=== PATIENT | male | born 1940 | race Caucasian/White ===

== ENCOUNTER 2018-04-10 07:39 | Day surgery (SDC) | payer MEDICARE, OTHER, SELFPAY ==
--- NOTE | 2018-04-09 16:21 | W.PIPPEYE ---
History of Present Illness Chief Complaint: Progressive decreased vision, right eye Narrative: The patient is a 77-year-old male with history of progressive decreased vision in both eyes at both distance and near, right eye worse than left. He was noted to have uncorrected vision of 20/200 in the right eye, correctable to 20/30, but with significant nuclear and cortical cataract in the right eye. The option of cataract surgery was offered to the patient and he wished to proceed. In addition, he has a moderate amount of astigmatism and desired a toric intraocular lens and attempt to reduce his postoperative needs for spectacle correction. NOTE: The Chief Complaint, HPI, Past Medical History, Past Surgical History, Family History, Social History, Medications, and complete Ophthalmic Exam with detailed Assessment and Plan have already been documented in the patient's outpatient ophthalmic record and are not covered again in detail here. [facility] Medical History Cortical cataract of right eye (Acute) Nuclear sclerotic cataract of right eye (Acute) Social History Smoking/Tobacco Use Status: Former Tobacco Use Meds Home Medications Medication Instructions Recorded Confirmed Type Prilosec OTC 40 mg PO DAILY NS 01/22/15 04/07/18 History atorvastatin 80 mg PO DAILY tab-cap NS 01/22/15 04/07/18 History nitroglycerin [Nitrostat] 0.4 mg SUBLINGUAL ONCE tab-cap NS 01/22/15 04/07/18 History aspirin 325 mg PO DAILY #90 tablet 12/19/16 04/07/18 Rx amlodipine 10 mg PO DAILY 04/07/18 04/07/18 History apixaban [Eliquis] 5 mg PO BID 04/07/18 04/07/18 History metoprolol succinate 75 mg PO DAILY 04/07/18 04/07/18 History Allergies Allergy/AdvReac Type Severity Reaction Status Date / Time No Known Allergies Allergy Unverified 09/05/17 14:02 Exam OCULAR EXAM:: Most recent ocular examination revealed uncorrected visual acuity of 2200 OD, 20/40 OS. Best corrected vision was 20/30 OD, 20/25 OS. Intraocular pressure is 13 OD 12 OS. Pupils equal, round, and reactive without afferent pupillary defect extraocular motility is normal. Slit-lamp examination shows pupils dilating to 5 mm OU. 2+ nuclear with 1-2+ cortical cataract OD. 2+ nuclear with 1-2+ cortical cataract OS. Dilated funduscopic examination shows disc cupping of 0.3 OD, 0.2 OS with mild nelly-papillary atrophy. The optic nerves have good perfusion and normal color. The retinal vasculature is normal without significant tortuosity or abnormality. The maculas are normal in appearance with normal contour and foveal reflex appropriate for age. The peripheral retina and vitreous are normal. Assessment and Plan (1) Nuclear sclerotic cataract of right eye: Current visit: No Status: Acute Assessment: Visually significant cataract, right eye. Plan: Cataract extraction with intraocular lens implantation, right eye (2) Cortical cataract of right eye: Current visit: No Status: Acute Assessment: Visually significant cataract, right eye. Plan: Cataract extraction with intraocular lens implantation, right eye Note: NOTE:: The details of the planned surgery, including the risks, indications,limitations,expectations,outcome and possible complications were explained to the patient. The patient understands the complications including, but not limited to: infection, hemorrhage, posterior dislocation of the lens or nuclear fragments which may require the intervention of a vitreoretinal surgeon, possible loss of the eye, or from anesthetic complications. The patient has been made aware of the option of not having surgery, that vision following surgery may not be equal to that prior to surgery, and that the planned surgery may not achieve the intended results. Following this discussion, which the patient appeared to understand, the patient wishes to proceed with cataract surgery with lens implantation of the affected eye to improve and maximize vision.
[2018-04-10 07:59] VITALS: BP 137/80; PULSE 62; RESP 14; TEMP 36.6; O2SAT 90
[2018-04-10] MEDS: Tropicam./Phenyleph. (1/2.5%) 5 ML BTL OD ×3 (08:23→08:31)
[2018-04-10] MEDS: Tetracaine 0.5% 4 ML BTL OD ×4 (08:23→09:10)
[2018-04-10] MEDS: Povidone-Iodine Ophth 30 ML BTL (09:11)
[2018-04-10] MEDS: Lidocaine 2% Jelly 6 ML SYR (09:12)
[2018-04-10] MEDS: Lidocaine 1% Pres-Free 5 ML VIAL (09:18)
[2018-04-10] MEDS: Balanced Salt Soln.-PLUS 500 ML BAG (09:19)
--- NOTE | 2018-04-10 09:48 | W.PM.DSUDISC ---
Discharge Plan Discharge Details Attending Provider: Alon Monaco Primary Care Provider: None,None Home Meds and New Rx's Prescriptions: No Action atorvastatin 80 MG tablet 80 mg PO DAILY RF: 0 nitroglycerin [Nitrostat] 0.4 MG tablet, sublingual 0.4 mg Sublingual ONCE RF: 0 Prilosec OTC 20 MG tablet,delayed release (DR/EC) 40 mg PO DAILY RF: 0 aspirin 325 MG tablet 325 mg PO DAILY Qty: 90 RF: 0 amlodipine 10 mg Tablet 10 mg PO DAILY RF: 0 metoprolol succinate 25 mg Tablet Extended Release 24 Hr 75 mg PO DAILY RF: 0 Eliquis 5 mg Tablet 5 mg PO BID RF: 0 Discharge Instructions Stand Alone Forms: Post-op Topical Cataract, Ramo Dwyer (DSU) DS: Diagnosis Discharge Diagnosis (1) Status post cataract extraction and insertion of intraocular lens of right eye: Status: Acute
--- NOTE | 2018-04-10 09:50 | ROE_ITS ---
Date of service: 04/10/18 Time of Service: 09:49 Operative Note PRE-OP DIAGNOSIS: Cataract, right eye, with corneal astigmatism POST-OP DIAGNOSIS: same PROCEDURE: Cataract extraction using phacoemulsification with toric intraocular lens implant, right eye SURGEON: Alon Monaco ANESTHESIA: MAC (with local sub-tenon's anesthetic injection) PATHOLOGY: none sent COMPLICATIONS: None Patient was transported to: same day Patient's condition: stable Implants: [employer] / STONEY Tecnis ZCT Toric Intraocular Lens Indications: Progressive decreased vision due to cataract, right eye, with corneal astigmatism Procedure Description: [] CATARACT SURGERY OPERATIVE REPORT PREOPERATIVE DIAGNOSIS: Nuclear/cortical cataract, right eye POSTOPERATIVE DIAGNOSIS: Same OPERATION: Cataract extraction using phacoemulsification with posterior chamber toric intraocular lens implant, right eye. IOL: IOL Informatics Application Analyst/Model: [employer] Vision / STONEY Tecnis ZCT 225 IOL Power: + 16.0 diopters sphere, 2.25 cylinder IOL Serial Number: [id number] Optic Diameter: 6.0mm Haptic/Overall Diameter: 13.00mm PHACO INFO: Reyes Huaaturion Vision System with OZil and Active Fluidics Cumulative Dispersed Energy (CDE): 14.7 seconds SURGEON: Alon Monaco MD, SHEYLA ANESTHESIA: Monitored Anesthesia Care (MAC), with local sub-tenon's anesthetic infiltration COMPLICATIONS: None SPECIMENS: None INDICATIONS FOR PROCEDURE: The patient is a 77-year old male with history of diminished visual acuity in both eyes secondary to the development of bilateral nuclear and cortical cataracts. He has significant against the rule astigmatism in the right eye and desired correction with a toric intraocular lens [facility] PROCEDURE: The correct surgical eye was identified and marked as the right eye and the pupil was dilated in the preoperative area using mydriatics and cycloplegics. The dilated pupil size was 6.5 mm. With the patient in the seated position, topical anesthetic was applied and a surgical marker was used to guillermina the limbus at 6:00. A Surgilum Robomarker was then used to guillermina the 0/180 degree reference axis. Oral sedation was administered in the form of an Imprimis MKO Melt (midazolam 3mg/ketamine 25mg/ondansetron 2mg). The patient was brought to the operating room where cardiopulmonary monitoring was instituted and surgical time-out was performed, confirming the correct operative eye and IOL power. Topical anesthesia was administered and ophthalmic povidone-iodine 5% was instilled into the conjunctival fornices. Lidocaine gel was applied to the cornea and the nelly-ocular area was prepped with Betadine 10% solution and draped in the usual sterile fashion for intraocular surgery, including an aperture drape. A Tegaderm transparent film dressing was cut in half and used to cover the lashes and lid margins. Care was taken to sequester the lashes and lid margins under the Tegaderm dressing. A lid speculum was placed between the lids of the operative eye and the Tiffani-Pardeep operating microscope was maneuvered into position. Angel scissors were then used to make a conjunctival buttonhole approximately 6mm posterior to the limbus in the inferonasal quadrant. Blunt dissection was carried out to expose bare sclera, and a blunt-tipped sub-tenon?s anesthesia cannula was introduced and passed posteriorly along the globe where non- preserved plain lidocaine was injected into posterior sub-Tenon?s space. A corneal ring gauge and axis marker were then used to guillermina the 180 degree position for the main phaco incision.and the 0/180 degree axis for alignment of the toric IOL. A sideport knife was used to make a paracentesis port at the 7:00 postion and the anterior chamber was filled with Healon GV. A 2.4mm keratome knife was used to create a half-thickness groove at the limbus and then to construct a three-plane near-clear corneal tunnel extending 2.0mm into clear cornea at the 180 degree axis. . A flap was raised on the anterior capsule and capsulorhexis forceps were used to complete a continuous curvilinear capsulorhexis of 4.5 mm. Balanced salt solution was then used to perform cortical cleaving hydrodissection and nuclear hydrodelineation until the lens could be freely rotated within the capsular bag. The lens nucleus was then disassembled and removed within the capsular bag and iris plane using phacoemulsification. Residual cortical material was removed using the 45-degree angled silicone I/A tip with 0.3mm port. The posterior capsule was carefully polished to remove as much residual lens epithelial cells as safely possible. The capsular bag was then inflated and the anterior chamber deepened with viscoelastic. The lens implant described above was inserted into the capsular bag using the STONEY [place] Injector. A Kuglen hook was used to dial the IOL into position, about 10 degrees counterclockwise of its final alignment. Residual viscoelastic was then removed first from posterior to the IOL, then from the anterior chamber using the I/A handpiece. The I/A handpiece was then used to dial the IOL to the target axis. The lens implant was noted to center nicely within the capsular bag, with the toric IOL prather aligned at the 0/180 degree axis. The incisions were stromally hydrated, and the anterior chamber was reformed using BSS. Then 0.4cc of moxifloxacin 1.5mg/ml were injected into the capsular bag and anterior chamber. The incisions were checked with a Weck spear and found to be secure. Several drops of ophthalmic povidone-iodine 5% were then applied to the eye followed by two drops of Imprimis combination moxifloxacin/dexamethasone solution. The drapes were removed and a clear plastic protective eye shield was placed over the eye. The patient was then returned to Same Day Surgery in stable condition.
[2018-04-10 10:28] VITALS: BP 146/75; PULSE 65; RESP 16; TEMP 36; O2SAT 91
== END 2018-04-10 10:25 | disposition home or self-care (01) ==
PROVIDERS: Visit Provider Ophthalmology
PROC: (CPT 66984; principal; 2018-04-10 09:30)
DX: H25.811 Combined forms of age-related cataract, right eye (principal); I10 Essential (primary) hypertension; K21.9 Gastro-esophageal reflux disease without esophagitis
CPT/HCPCS: 66984; V2632

== ENCOUNTER 2018-04-21 09:07 | Outpatient (CLI) | payer MEDICARE, OTHER, SELFPAY ==
--- NOTE | 2018-04-21 09:35 | DI.RAD_ITS ---
SYMPTOMS/DIAGNOSIS: S/P INTRAMEDULLARY NAILING OF RIGHT FEMUR; LEFT SHOULDER PAIN; OSTEOARTHRITIS OF LEFT KNEE RIGHT HIP: Two views. Comparison examinations are 02/11/17 and 01/05/17. There is again seen an intramedullary nail and screw in the proximal right femur. The distal aspect of the femoral nail is not included on the examination. No suspicious lucencies are seen in or about the orthopedic hardware to suggest loosening or infection. The femoral neck fracture appears to have healed well. No new fractures or dislocations are seen. The right hip joint appears unremarkable. Soft tissues have a normal appearance. IMPRESSION: No acute abnormality. LEFT SHOULDER: Four views. No acute fracture or dislocation is seen. There are mild hypertrophic changes seen at the acromioclavicular joint. The glenohumeral joint appears well maintained. The soft tissues are unremarkable. There are old healed left rib fractures present. IMPRESSION: Mild osteoarthritis of the left AC joint. LEG LENGTH EXAMINATION: There is an intramedullary maria esther and screw in the right femur. In the right knee, there is mild joint space narrowing and periarticular spurring seen both medially and laterally. In the left knee, there is marked narrowing of the lateral femorotibial joint space and moderate-sized periarticular spurring both medially and laterally. There does appear to be chondrocalcinosis. The right lower extremity measures 93.9 cm, the left lower extremity measures 95.1 cm.
== END 2018-04-21 09:27 ==
PROVIDERS: Visit Provider Student in an Organized Health Care Education/Training Program
DX: M25.512 Pain in left shoulder (principal); M19.012 Primary osteoarthritis, left shoulder; M17.12 Unilateral primary osteoarthritis, left knee; S72.141D Displaced intertrochanteric fracture of right femur, subsequent encounter for closed fracture with routine healing; M21.70 Unequal limb length (acquired), unspecified site; X58.XXXD Exposure to other specified factors, subsequent encounter; M75.102 Unspecified rotator cuff tear or rupture of left shoulder, not specified as traumatic; M12.812 Other specific arthropathies, not elsewhere classified, left shoulder
CPT/HCPCS: 99214; 73030; 73502; 77073

== ENCOUNTER 2018-04-24 08:38 | Day surgery (SDC) | payer MEDICARE, OTHER, SELFPAY ==
--- NOTE | 2018-04-23 14:53 | W.PIPPEYE ---
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 He developed significant bilateral nuclear and cortical cataracts that were becoming increasingly symptomatic. He underwent cataract surgery in the right eye on 04/10/2018 with a toric intraocular lens implant. Postoperatively, he has regained uncorrected vision of 20/25 in the right eye. He now presents for cataract surgery in the left eye. NOTE: The Chief Complaint, HPI, Past Medical History, Past Surgical History, Family History, Social History, Medications, and complete Ophthalmic Exam with detailed Assessment and Plan have already been documented in the patient's outpatient ophthalmic record and are not covered again in detail here. [facility] Medical History Cortical cataract of left eye (Acute) Cortical cataract of right eye (Resolved) Nuclear sclerotic cataract of right eye (Resolved) Surgical History Status post cataract extraction and insertion of intraocular lens of right eye (Acute 04/10/18) Social History Smoking/Tobacco Use Status: Former Tobacco Use Meds Home Medications Medication Instructions Recorded Confirmed Type Prilosec OTC 40 mg PO DAILY NS 01/22/15 04/21/18 History atorvastatin 80 mg PO DAILY tab-cap NS 01/22/15 04/21/18 History nitroglycerin [Nitrostat] 0.4 mg SUBLINGUAL ONCE tab-cap NS 01/22/15 04/21/18 History aspirin 325 mg PO DAILY #90 tab 12/19/16 04/21/18 Rx amlodipine 10 mg PO DAILY 04/07/18 04/21/18 History apixaban [Eliquis] 5 mg PO BID 04/07/18 04/21/18 History metoprolol succinate 75 mg PO DAILY 04/07/18 04/21/18 History Allergies Allergy/AdvReac Type Severity Reaction Status Date / Time No Known Allergies Allergy Unverified 04/21/18 09:29 Exam OCULAR EXAM:: Most recent ocular examination reveals uncorrected visual acuity of 20/25 in the right eye, 20/30 in the left eye. Intraocular pressure is 16 OD, 12 OS. Pupils equal, round, and reactive without afferent pupillary defect. Extraocular motility is normal. Slit-lamp examination reveals a well-positioned PCIOL OD with clear posterior capsule. In the left eye there is a 2+ nuclear with 1-2+ cortical cataract present. Funduscopic examination shows disc cupping of 0.3 OD 0.2 OS with peripapillary atrophy. The macula, retinal vasculature, peripheral retina and vitreous are normal OU. BRIGHTNESS ACUITY TESTING (BAT):: Brightness acuity testing of the left eye off is 20/40. Low is 20/30. Medium is 20/30. High is 20/40. Assessment and Plan (1) Nuclear sclerotic cataract of right eye: Current visit: No Status: Acute (2) Cortical cataract of left eye: Current visit: No Status: Acute Note: NOTE:: The details of the planned surgery, including the risks, indications,limitations,expectations,outcome and possible complications were explained to the patient. The patient understands the complications including, but not limited to: infection, hemorrhage, posterior dislocation of the lens or nuclear fragments which may require the intervention of a vitreoretinal surgeon, possible loss of the eye, or from anesthetic complications. The patient has been made aware of the option of not having surgery, that vision following surgery may not be equal to that prior to surgery, and that the planned surgery may not achieve the intended results. Following this discussion, which the patient appeared to understand, the patient wishes to proceed with cataract surgery with lens implantation of the affected eye to improve and maximize vision.
--- NOTE | 2018-04-23 15:04 | POEE_ITS ---
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 He developed significant bilateral nuclear and cortical cataracts that were becoming increasingly symptomatic. He underwent cataract surgery in the right eye on 04/10/2018 with a toric intraocular lens implant. Postoperatively, he has regained uncorrected vision of 20/25 in the right eye. He now presents for cataract surgery in the left eye. NOTE: The Chief Complaint, HPI, Past Medical History, Past Surgical History, Family History, Social History, Medications, and complete Ophthalmic Exam with detailed Assessment and Plan have already been documented in the patient's outpatient ophthalmic record and are not covered again in detail here. [facility] Medical History Nuclear sclerotic cataract of left eye (Acute) Cortical cataract of left eye (Acute) Cortical cataract of right eye (Resolved) Nuclear sclerotic cataract of right eye (Resolved) Surgical History Status post cataract extraction and insertion of intraocular lens of right eye (Acute 04/10/18) Social History Smoking/Tobacco Use Status: Former Tobacco Use Meds Home Medications Medication Instructions Recorded Confirmed Type Prilosec OTC 40 mg PO DAILY NS 01/22/15 04/21/18 History atorvastatin 80 mg PO DAILY tab-cap NS 01/22/15 04/21/18 History nitroglycerin [Nitrostat] 0.4 mg SUBLINGUAL ONCE tab-cap NS 01/22/15 04/21/18 History aspirin 325 mg PO DAILY #90 tab 12/19/16 04/21/18 Rx amlodipine 10 mg PO DAILY 04/07/18 04/21/18 History apixaban [Eliquis] 5 mg PO BID 04/07/18 04/21/18 History metoprolol succinate 75 mg PO DAILY 04/07/18 04/21/18 History Allergies Allergy/AdvReac Type Severity Reaction Status Date / Time No Known Allergies Allergy Unverified 04/21/18 09:29 Exam OCULAR EXAM:: Most recent ocular examination reveals uncorrected visual acuity of 20/25 in the right eye, 20/30 in the left eye. Intraocular pressure is 16 OD, 12 OS. Pupils equal, round, and reactive without afferent pupillary defect. Extraocular motility is normal. Slit-lamp examination reveals a well- positioned PCIOL OD with clear posterior capsule. In the left eye there is a 2+ nuclear with 1-2+ cortical cataract present. Funduscopic examination shows disc cupping of 0.3 OD 0.2 OS with peripapillary atrophy. The macula, retinal vasculature, peripheral retina and vitreous are normal OU. Brightness acuity testing of the left eye off is 20/40. Low is 20/30. Medium is 20/30. High is 20/40. BRIGHTNESS ACUITY TESTING (BAT):: Brightness acuity testing of the left eye off is 20/40. Low is 20/30. Medium is 20/30. High is 20/40. Assessment and Plan (1) Nuclear sclerotic cataract of left eye: Current visit: No Status: Acute Assessment: Visually significant cataract, left eye. Plan: Cataract extraction with intraocular lens implantation, left eye (2) Cortical cataract of left eye: Current visit: No Status: Acute Assessment: Visually significant cataract, left eye. Plan: Cataract extraction with intraocular lens implantation, left eye Note: NOTE:: The details of the planned surgery, including the risks, yane cations,limitations,expectations,outcome and possible complications were explained to the patient. The patient understands the complications including, but not limited to: infection, hemorrhage, posterior dislocation of the lens or nuclear fragments which may require the intervention of a vitreoretinal surgeon, possible loss of the eye, or from anesthetic complications. The patient has been made aware of the option of not having surgery, that vision following surgery may not be equal to that prior to surgery, and that the planned surgery may not achieve the intended results. Following this discussion, which the patient appeared to understand, the patient wishes to proceed with cataract surgery with lens implantation of the affected eye to improve and maximize vision.
--- NOTE | 2018-04-23 15:08 | W.PM.DSUDISC ---
Discharge Plan Discharge Details Attending Provider: Alon Monaco Primary Care Provider: None,None Home Meds and New Rx's Prescriptions: No Action atorvastatin 80 MG tablet 80 mg PO DAILY RF: 0 nitroglycerin [Nitrostat] 0.4 MG tablet, sublingual 0.4 mg Sublingual ONCE RF: 0 Prilosec OTC 20 MG tablet,delayed release (DR/EC) 40 mg PO DAILY PRNRF: 0 aspirin 325 MG tablet 325 mg PO DAILY Qty: 90 RF: 0 amlodipine 10 mg Tablet 10 mg PO DAILY RF: 0 metoprolol succinate 25 mg Tablet Extended Release 24 Hr 75 mg PO DAILY RF: 0 Eliquis 5 mg Tablet 5 mg PO BID RF: 0 Discharge Instructions Stand Alone Forms: Post-op Topical CataractRamo (DSU) DS: Diagnosis Discharge Diagnosis (1) Status post cataract extraction and insertion of intraocular lens of left eye: Status: Chronic
--- NOTE | 2018-04-23 15:10 | ROE_ITS ---
Date of service: 04/24/18 Time of Service: 11:29 Operative Note PRE-OP DIAGNOSIS: Cataract, left eye POST-OP DIAGNOSIS: same PROCEDURE: Cataract extraction using phacoemulsification with intraocular lens implant, left eye SURGEON: Alon Monaco ANESTHESIA: MAC and local (sub-tenon's anesthetic infiltration) PATHOLOGY: none sent COMPLICATIONS: None Patient was transported to: same day Patient's condition: stable Implants: [employer] / [employer] Tecnis [id number] Indications: Progressive decreased vision due to cataract, left eye Procedure Description: CATARACT SURGERY OPERATIVE REPORT PREOPERATIVE DIAGNOSIS: Nuclear/cortical cataract, left eye POSTOPERATIVE DIAGNOSIS: Same OPERATION: Cataract extraction using phacoemulsification with posterior chamber intraocular lens implant, left eye. IOL: IOL Dehydrogenation Supervisor/Model: [employer] [place] / STONEY Tecnis [id number] IOL Power: + 19.50 diopters IOL Serial Number: [id number] Optic Diameter: 6.0mm Haptic/Overall Diameter: 13.0mm PHACO INFO: Reyes Remember The [employer] Vision System with OZil and Active Fluidics Cumulative Dispersed Energy (CDE): 9.3 seconds SURGEON: Alon Monaco MD, SHEYLA ANESTHESIA: Monitored Anesthesia Care (MAC), with local sub-tenon's anesthetic infiltration COMPLICATIONS: None SPECIMENS: None INDICATIONS FOR PROCEDURE: The patient is a 77-year old male with history of symptomatic bilateral nuclear and cortical cataracts. He has already undergone cataract surgery in the right eye with a toric intraocular lens implant. He now has uncorrected visual acuity of 20/25 in the right eye. He now presents for cataract surgery in the left eye. PROCEDURE: The correct surgical eye was identified and marked as the left eye and the pupil was dilated in the preoperative area using mydriatics and cycloplegics. The dilated pupil size was 7.0 mm. Oral sedation was administered in the form of an Imprimis MKO Melt (midazolam 3mg/ketamine 25mg/ondansetron 2mg). The patient was brought to the operating room where cardiopulmonary monitoring was instituted and surgical time-out was performed, confirming the correct operative eye and IOL power. Topical anesthesia was administered and ophthalmic povidone-iodine 5% was instilled into the conjunctival fornices. Lidocaine gel was applied to the cornea and the nelly-ocular area was prepped with Betadine 10% solution and draped in the usual sterile fashion for intraocular surgery, including an aperture drape. A Tegaderm transparent film dressing was cut in half and used to cover the lashes and lid margins. Care was taken to sequester the lashes and lid margins under the Tegaderm dressing. A lid speculum was placed between the lids of the operative eye and the Tiffani-Pardeep operating microscope was maneuvered into position. Angel scissors were then used to make a conjunctival buttonhole approximately 6mm posterior to the limbus in the inferonasal quadrant. Blunt dissection was carried out to expose bare sclera, and a blunt-tipped sub-tenon?s anesthesia cannula was introduced and passed posteriorly along the globe where non- preserved plain lidocaine was injected into posterior sub-Tenon?s space. A sideport knife was used to make a paracentesis port superior/superiortemporal, and the anterior chamber was filled with Healon GV. A 2.4mm keratome knife was used to create a half-thickness groove at the limbus and then to construct a three-plane near-clear corneal tunnel extending 2.0mm into clear cornea in the temporal position. . A flap was raised on the anterior capsule and capsulorhexis forceps were used to complete a continuous curvilinear capsulorhexis of 5.0 mm. Balanced salt solution was then used to perform cortical cleaving hydrodissection and nuclear hydrodelineation until the lens could be freely rotated within the capsular bag. The lens nucleus was then disassembled and removed within the capsular bag and iris plane using phacoemulsification. Residual cortical material was removed using the 45-degree angled silicone I/A tip with 0.3mm port. The posterior capsule was carefully polished to remove as much residual lens epithelial cells as safely possible. The capsular bag was then inflated and the anterior chamber deepened with viscoelastic. The lens implant described above was inserted into the capsular bag using the STONEY [place] Injector. A Kuglen hook was used to dial the IOL into position. Residual viscoelastic was then removed first from posterior to the IOL, then from the anterior chamber using the I/A handpiece. The lens implant was noted to center nicely within the capsular bag. The incisions were stromally hydrated, and the anterior chamber was reformed using BSS. Then 0.4cc of moxifloxacin 1.5mg/ml were injected into the capsular bag and anterior chamber. The incisions were checked with a Weck spear and found to be secure. Several drops of ophthalmic povidone-iodine 5% were then applied to the eye followed by two drops of Imprimis combination moxifloxacin/dexamethasone solution. The drapes were removed and a clear plastic protective eye shield was placed over the eye. The patient was then returned to Same Day Surgery in stable condition.
[2018-04-24 08:45] VITALS: BP 142/81; PULSE 78; RESP 16; TEMP 36.5; O2SAT 94
[2018-04-24] MEDS: Tetracaine 0.5% 4 ML BTL OS ×4 (09:01→10:57)
[2018-04-24] MEDS: Tropicam./Phenyleph. (1/2.5%) 5 ML BTL OS ×3 (09:01→09:15)
[2018-04-24] MEDS: Povidone-Iodine Ophth 30 ML BTL ×2 (10:57→11:22)
[2018-04-24] MEDS: Lidocaine 2% Jelly 6 ML SYR (10:57)
[2018-04-24] MEDS: Balanced Salt Soln.-PLUS 500 ML BAG (11:02)
[2018-04-24] MEDS: Lidocaine 1% Pres-Free 5 ML VIAL (11:02)
[2018-04-24 12:10] VITALS: BP 117/72; PULSE 68; RESP 16; TEMP 36.9; O2SAT 92
== END 2018-04-24 12:20 | disposition home or self-care (01) ==
LOC: SUR 08:38
PROVIDERS: Visit Provider Ophthalmology
PROC: (CPT 66984; principal; 2018-04-24 10:30)
DX: H25.812 Combined forms of age-related cataract, left eye (principal); Z98.41 Cataract extraction status, right eye; Z96.1 Presence of intraocular lens; I10 Essential (primary) hypertension; K21.9 Gastro-esophageal reflux disease without esophagitis
CPT/HCPCS: 66984; V2632

== ENCOUNTER 2018-05-31 07:54 | Outpatient (CLI) | payer MEDICARE, OTHER, SELFPAY ==
--- NOTE | 2018-05-31 12:47 | W.PREOPHP ---
Date of service: 05/31/18 Assessment and Plan (1) Primary osteoarthritis of left knee: Current visit: No Status: Chronic Left total knee replacement. Details of surgery were discussed with patient as well as risks and pertinent anatomy. All questions were answered. History of Present Illness Chief Complaint: Left knee pain Narrative: Yoseph is a 77-year-old very active male, who comes in today for preop for a left total knee replacement. He has been dealing with left knee pain for really many years, but is really been starting to aggravate him over the last year or 2. He has had a right hip fracture, and since the ORIF of his right hip fracture of the left knee is really been aggravating him. He states that he is not walking with a normal gait because of his left knee. He also continues to downhill ski, and is very cautious with both of his legs, but his left leg feels to be more painful and unsteady than the right side now. He has had known arthritis in the left knee for quite some time, and also has tried injections in the left knee which have helped some. Injections have not taken away all the pain, and really have not lasted for more than a few weeks at a time. He would like to continue to stay active, and Dr. Brewer does suggest a left total knee replacement, and Yoseph agrees and is anxious to proceed. Pertinent Surgical Information Yoseph states that he has tried oxycodone, and this did not work out well for him as he had hallucinations and constipation. About 5 years ago Yoseph but having some signs of angina with activity, especially skiing. Eventually, while skiing 1 day in [place], he went to the walk-in clinic because of chest pain and was told that he was having a small heart attack. He immediately was transported to [place] where he had cardiac cath and stenting. He has not had any chest pain or shortness of breath episodes with activity since then. He does continue to be very active including skiing, both downhill and cross-country He sees a communication coordinator locally, and according to Yoseph does not have any issues at this time. Yoseph also states that the communication coordinator is aware of his upcoming left total knee replacement. Patient denies history of CVA, angina, asthma, COPD, renal or liver disorders, hepatitis, bleeding disorders, diabetes, immune or thyroid disorders. No complications from anesthesia. Review of Systems Constitutional Denies fever(s) ENT Denies dizziness and Denies sore throat Cardiovascular Denies chest pain, Denies palpitations and Denies dyspnea Respiratory Denies cough and Denies dyspnea Gastrointestinal Denies abdominal pain, Denies melena, Denies hematochezia, Denies diarrhea, Denies nausea and Denies vomiting Genitourinary Denies hematuria and Denies dysuria Neurologic Denies dizziness Endocrine Denies palpitations PFSH Medical History Hyperlipidemia (Acute) History of CT (myocardial infarction) (Acute) Cortical cataract of left eye (Resolved) Cortical cataract of right eye (Resolved) Nuclear sclerotic cataract of right eye (Resolved) Nuclear sclerotic cataract of left eye (Ruled-out) Surgical History Closed fracture of right hip requiring operative repair (Acute) History of tonsillectomy and adenoidectomy (Acute) History of heart artery stent (Chronic) Status post cataract extraction and insertion of intraocular lens of right eye (Acute 04/10/18) Status post cataract extraction and insertion of intraocular lens of left eye (Chronic 04/24/18) Social History Smoking and Tabacco status: Former Tobacco Use Meds Home Medications Medication Instructions Recorded Confirmed Type Prilosec OTC 40 mg PO DAILY PRN NS 01/22/15 05/31/18 History atorvastatin 80 mg PO HS tab-cap NS 01/22/15 05/31/18 History nitroglycerin [Nitrostat] 0.4 mg SUBLINGUAL ONCE tab-cap NS 01/22/15 05/31/18 History aspirin 325 mg PO DAILY #90 tab 12/19/16 05/31/18 Rx amlodipine 10 mg PO DAILY 04/07/18 05/31/18 History metoprolol succinate 75 mg PO DAILY 04/07/18 05/31/18 History Allergies Allergy/AdvReac Type Severity Reaction Status Date / Time No Known Allergies Allergy Unverified 05/31/18 09:29 Exam [facility] Head: normocephalic and atraumatic General nose exam: no nasal discharge Throat: uvula midline and no uvular edema Other: soft palate rises symmetrically, no erythema Eyes Conjunctivae: conjunctivae normal Sclera: sclerae normal Pupils: PERRL Resp Effort & Inspection: normal respiratory effort Auscultation: clear to auscultation bilaterally and no wheezes Cardio Rate: regular rate Rhythm: regular rhythm Heart Sounds: S1 normal, S2 normal and no murmurs
--- NOTE | 2018-05-31 12:55 | HPE_ITS ---
Date of service: 05/31/18 Assessment and Plan (1) Primary osteoarthritis of left knee: Current visit: No Status: Chronic Left total knee replacement. Details of surgery were discussed with patient as well as risks and pertinent anatomy. All questions were answered. History of Present Illness Chief Complaint: Left knee pain Narrative: Yoseph is a 77-year-old very active male, who comes in today for preop for a left total knee replacement. He has been dealing with left knee pain for really many years, but is really been starting to aggravate him over the last year or 2. He has had a right hip fracture, and since the ORIF of his right hip fracture of the left knee is really been aggravating him. He states that he is not walking with a normal gait because of his left knee. He also continues to downhill ski, and is very cautious with both of his legs, but his left leg feels to be more painful and unsteady than the right side now. He has had known arthritis in the left knee for quite some time, and also has tried injections in the left knee which have helped some. Injections have not taken away all the pain, and really have not lasted for more than a few weeks at a time. He would like to continue to stay active, and Dr. Brewer does suggest a left total knee replacement, and Yoseph agrees and is anxious to proceed. Pertinent Surgical Information Yoseph states that he has tried oxycodone, and this did not work out well for him as he had hallucinations and constipation. About 5 years ago Yoseph but having some signs of angina with activity, especially skiing. Eventually, while skiing 1 day in [place], he went to the walk-in clinic because of chest pain and was told that he was having a small heart attack. He immediately was transported to [place] where he had cardiac cath and stenting. He has not had any chest pain or shortness of breath episodes with activity since then. He does continue to be very active including skiing, both downhill and cross-country He sees a tower loader operator locally, and according to Yoseph does not have any issues at this time. Yoseph also states that the tower loader operator is aware of his upcoming left total knee replacement. Patient denies history of CVA, angina, asthma, COPD, renal or liver disorders, hepatitis, bleeding disorders, diabetes, immune or thyroid disorders. No complications from anesthesia. Review of Systems Constitutional Denies fever(s) ENT Denies dizziness and Denies sore throat Cardiovascular Denies chest pain, Denies palpitations and Denies dyspnea Respiratory Denies cough and Denies dyspnea Gastrointestinal Denies abdominal pain, Denies melena, Denies hematochezia, Denies diarrhea, Denies nausea and Denies vomiting Genitourinary Denies hematuria and Denies dysuria Neurologic Denies dizziness Endocrine Denies palpitations PFSH Medical History Hyperlipidemia (Acute) History of [place] (myocardial infarction) (Acute) Cortical cataract of left eye (Resolved) Cortical cataract of right eye (Resolved) Nuclear sclerotic cataract of right eye (Resolved) Nuclear sclerotic cataract of left eye (Ruled-out) Surgical History Closed fracture of right hip requiring operative repair (Acute) History of tonsillectomy and adenoidectomy (Acute) History of heart artery stent (Chronic) Status post cataract extraction and insertion of intraocular lens of right eye (Acute 04/10/18) Status post cataract extraction and insertion of intraocular lens of left eye (Chronic 04/24/18) Social History Smoking and Tabacco status: Former Tobacco Use Meds Home Medications Medication Instructions Recorded Confirmed Type Prilosec OTC 40 mg PO DAILY PRN NS 01/22/15 05/31/18 History atorvastatin 80 mg PO HS tab-cap NS 01/22/15 05/31/18 History nitroglycerin [Nitrostat] 0.4 mg SUBLINGUAL ONCE tab-cap NS 01/22/15 05/31/18 History aspirin 325 mg PO DAILY #90 tab 12/19/16 05/31/18 Rx amlodipine 10 mg PO DAILY 04/07/18 05/31/18 History metoprolol succinate 75 mg PO DAILY 04/07/18 05/31/18 History Allergies Allergy/AdvReac Type Severity Reaction Status Date / Time No Known Allergies Allergy Unverified 05/31/18 09:29 Exam [facility] Head: normocephalic and atraumatic General nose exam: no nasal discharge Throat: uvula midline and no uvular edema Other: soft palate rises symmetrically, no erythema Eyes Conjunctivae: conjunctivae normal Sclera: sclerae normal Pupils: PERRL Resp Effort & Inspection: normal respiratory effort Auscultation: clear to auscultation bilaterally and no wheezes Cardio Rate: regular rate Rhythm: regular rhythm Heart Sounds: S1 normal, S2 normal and no murmurs
== END 2018-05-31 08:14 ==
PROVIDERS: PCP Family Medicine; Visit Provider Student in an Organized Health Care Education/Training Program
DX: M25.562 Pain in left knee (principal); M17.12 Unilateral primary osteoarthritis, left knee; Z01.818 Encounter for other preprocedural examination
CPT/HCPCS: NC

== ENCOUNTER 2018-05-31 08:56 | Outpatient (CLI) | payer MEDICARE, OTHER, SELFPAY ==
[2018-05-31 10:06] LABS: HCT 43.8 % (40.0-50.0); HGB 14.3 g/dL (13.5-17.5); Mean Corp. HGB Concentration 32.6 g/dL (32.0-36.0); Mean Corpuscular Hemoglobin 30.2 pg (27.0-33.0); Mean Corpuscular Volume 92.4 fL (80-95); Mean Platelet Volume 10.2 fL (8.0-11.0); Platelet Count 240 x1000/uL (130-400); RBC 4.74 m/cumm (4.50-6.00); RBC Distribution Width 13.6 % (11.8-14.1); White Blood Cell Count 7.41 k/cumm (4.4-10.8)
[2018-05-31 10:47] LABS: Anion Gap 6.5 mmol/L (3-11); BUN 24 mg/dL (7-18); CO2 29.5 mmol/L (21.0-32.0); CREATININE 0.91 mg/dL (0.70-1.30); Calcium 8.9 mg/dL (8.5-10.1); Chloride 106 mmol/L (98-107); Glucose 95 mg/dL (70-100); Potassium 4.4 mmol/L (3.5-5.1); Sodium 142 mmol/L (136-145)
== END 2018-05-31 09:16 ==
PROVIDERS: PCP Family Medicine; Visit Provider Student in an Organized Health Care Education/Training Program
DX: M17.12 Unilateral primary osteoarthritis, left knee (principal); Z01.812 Encounter for preprocedural laboratory examination
CPT/HCPCS: 36415; 80048; 85027

== ENCOUNTER 2018-06-06 08:01 | Inpatient (IN) | payer MEDICARE, OTHER, SELFPAY ==
[2018-05-31 08:13] VITALS: BP 142/80; PULSE 63; RESP 18; TEMP 36.7; O2SAT 92
--- NOTE | 2018-05-31 08:56 | NUR.NOTE ---
05/31/18 Site Auditor unavailable for Pre-Op visit. PGNursing Note:
[2018-06-06] VITALS (19 sets, daily range): BP systolic 105–137; BP diastolic 58–81; PULSE 53–71; RESP 8–18; TEMP 35.4–36.6; O2SAT 86–96
[2018-06-06] MEDS: Celecoxib 200 MG CAP 400 MG PO (06:45)
[2018-06-06] MEDS: Acetaminophen 500 MG TAB 1000 MG PO (06:45)
[2018-06-06] MEDS: Gabapentin 300 MG CAP PO ×2 (06:45→22:10)
[2018-06-06] MEDS: oxyCODONE-CR 10 MG TABCR PO (06:45)
[2018-06-06] MEDS: Lactated Ringers 1,000 ML 80 ML IV ×3 (07:15→20:19)
[2018-06-06] MEDS: Bupivacaine LIPOSOME/PF 133 MG/10 ML VIAL IJ ×2 (07:31→09:36)
[2018-06-06] MEDS: Bupivacaine 0.5% Pres-Free 30 ML VIAL (07:31)
[2018-06-06] MEDS: Normal Saline 20 ML VIAL (09:36)
[2018-06-06] MEDS: Ketorolac 30 MG/ML VIAL (09:36)
[2018-06-06] MEDS: Bupivacaine 0.25% Pres-Free 30 ML VIAL (09:36)
--- NOTE | 2018-06-06 15:53 | PT.INIE ---
Date of service: 06/06/18 Time of Service: 14:52 PT Notes Inpatient Physical Therapy Evaluation Date: 06/06/2018 Referring Doctor: Rodri Brewer MD PT Orders: PT CONSULT: Status post left TKA Precautions: Fall. Standard. Patient Profile/Admitting Diagnosis: Order for functional mobility training, strengthening, and balance retraining of 77-year-old male status post left TKA secondary to left primary osteoarthritis was received today. PMHX: Medical History Hyperlipidemia (Acute) History of [place] (myocardial infarction) (Acute) Cortical cataract of left eye (Resolved) Cortical cataract of right eye (Resolved) Nuclear sclerotic cataract of right eye (Resolved) Nuclear sclerotic cataract of left eye (Ruled-out) Surgical History Closed fracture of right hip requiring operative repair (Acute) History of tonsillectomy and adenoidectomy (Acute) History of heart artery stent (Chronic) Status post cataract extraction and insertion of intraocular lens of right eye (Acute 04/10/18) Status post cataract extraction and insertion of intraocular lens of left eye (Chronic 04/24/18) Social History/Home Situation: Patient lives with significant other in a two-story house with 3 steps to enter and rails on both sides. Patient states he has 8 steps to the second floor of the house but he plans on staying on the first floor, where he has everything, upon discharge from the hospital. Prior to admission he was independent with all aspects of ADLs but has increasingly been limited by pain on the left knee due to arthritis. Current Functional Limitations: CGA with bed mobility, minimal assist with transfers and ambulation using front-wheeled walker. Equipment Owned/DME: Patient states that he has a front wheeled walker, axillary crutches, cane, shower chair, and [id number] commode all of which he used when he had previous surgery on his right hip. Subjective: Patient reports he does not feel anything when this PT came in for evaluation. He states he looks forward to going home and continue with outpatient physical therapy services. He also states that his lived an active life down he will skiing and cross country skiing in and out of state. 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 Objective: General Observation: Patient was seen lying in bed with cryocuff on left knee, anti-DVT pump on R leg, IV in the right UE, Peace catheter in place, and oxygen cannula on at 1 L/min. Mental Status: Alert and oriented x3 Pain: Denies Vital Signs: 122/76 mmHg, 63 bpm, 12 CPM, 35.9 ?C, 95% at 1 L of oxygen per minute. ROM: Right Upper Extremity: WFL Left Upper Extremity: WFL Right Lower Extremity: WFL Left Lower Extremity: Active left knee flexion -15 to 88 degrees in supine; -15 to 95 degrees when measured while sitting at edge of bed. Strength: Right Upper Extremity: WFL Left Upper Extremity: WFL Right Lower Extremity: WFL Left Lower Extremity: Hip flexors 3/5. Knee flexors 3-/5. Knee extensors 3-/5. Ankle plantar flexors/dorsiflexors 4/5. Sensation: Patient states he is able, although not fully, to feel the sole of his left foot and he is able to feel his muscles malena by the time weight bearing activity was assessed. Bed Mobility/Transfers: Rolling contact-guard assist Supine to sit contact-guard assist Sit to supine contact-guard assist Sit to stand minimal assist Stand to sit minimal assist Bed to chair minimal assist Chair to bed minimal assist Gait: Patient tolerated level surface ambulation inside room for 10 feet while holding onto front wheeled walker with a step to pattern with noticeably decreased flexion on the left side during swing and decreased knee extension as well during mid stance on L, minimal assist provided, no pain reported nor LOB observed. A second walking activity was done and patient was able to take 20 steps including one turn with no dizziness nor any other issues observed/reported. Balance: Static Sitting: Good Dynamic Sitting: Good Static Standing: Fair Dynamic Standing: Fair Special Tests: Mobility Limitations Standardized Measure [facility] AM-PAC 6 clicks Basic Mobility Inpatient Short Form: Raw Score: 17 CMS Score: 50.57% deficit Informed Consent/Education: Patient instructed in purpose of PT consult and plan of care. Assessment: Patient is a 77 year old male patient referred to physical therapy services with the diagnosis of status post left knee total arthroplasty due to primary osteoarthritis. Patient presents with clinical signs and symptoms consistent with functional mobility decline, weakness, and mobility dependence resulting from postoperative status, as demonstrated by the following impairment level findings: 1. Limited left knee mobility and strength 2. Impaired balance/stability 3. Impaired activity tolerance Impairments are contributing to the following functional limitations: 1. Dependent mobility ADLs 2. Increased completion time with transfer performance 3. Increase completion time with ambulation performance 4. Increased risk for falls due to weakness and limited left knee mobility Patient is assessed as a Moderate 45860 complexity based on the following: History: Status post left total knee arthroplasty with comorbidities as noted above under past medical history Examination: Functional limitations and impairments as noted above Presentation: Evolving Decision Making: Moderate complexity 46567 Goals: Goals X1 week 1. Supine-Sit independent 2. Sit-Supine independent 3. Sit-Stand independent 4. Stand-Sit independent 5. Bed-Chair independent 6. Chair-Bed in dependent 7. Gait with front-wheeled walker on level surfaces for at least 300 feet 8. Stairs independent while holding onto both rails 8 steps 9. Independent with home exercise program 10. Balance good for static and dynamic standing Plan of Care/Treatment Plan: 1-2x/day, 7 days/week x 1 week. Plan of care has been reviewed with the OXYGEN EQUIPMENT AIDE providing the service under Physical Therapy direction. Initiate Physical Therapy intervention for strengthening, bed mobility, transfers, gait, stairs, balance training, use of assistive device. DISCHARGE RECOMMENDATIONS: To home with significant other with least restrictive device. May benefit from progression to outpatient physical therapy services to facilitate return to premorbid independent ADL performance and to potentially participate in premorbid recreational activities. TREATMENT CODE/TIME: 37965 25 minutes, 67475 12 minutes, 78881 12 minutes beginning at 1450 2 PM. Thank you for this referral. Geeta Hargrove, PT, DPT, CLT [facility]
--- NOTE | 2018-06-06 15:56 | IN_ITS ---
Date of service: 06/06/18 Time of Service: 14:52 PT Notes Inpatient Physical Therapy Evaluation Date: 06/06/2018 Referring Doctor: Rodri Brewer MD PT Orders: PT CONSULT: Status post left TKA Precautions: Fall. Standard. Patient Profile/Admitting Diagnosis: Order for functional mobility training, strengthening, and balance retraining of 77-year-old male status post left TKA secondary to left primary osteoarthritis was received today. PMHX: Medical History Hyperlipidemia (Acute) History of VT (myocardial infarction) (Acute) Cortical cataract of left eye (Resolved) Cortical cataract of right eye (Resolved) Nuclear sclerotic cataract of right eye (Resolved) Nuclear sclerotic cataract of left eye (Ruled-out) Surgical History Closed fracture of right hip requiring operative repair (Acute) History of tonsillectomy and adenoidectomy (Acute) History of heart artery stent (Chronic) Status post cataract extraction and insertion of intraocular lens of right eye (Acute 04/10/18) Status post cataract extraction and insertion of intraocular lens of left eye (Chronic 04/24/18) Social History/Home Situation: Patient lives with significant other in a two- story house with 3 steps to enter and rails on both sides. Patient states he has 8 steps to the second floor of the house but he plans on staying on the first floor, where he has everything, upon discharge from the hospital. Prior to admission he was independent with all aspects of ADLs but has increasingly been limited by pain on the left knee due to arthritis. Current Functional Limitations: CGA with bed mobility, minimal assist with transfers and ambulation using front-wheeled walker. Equipment Owned/DME: Patient states that he has a front wheeled walker, axillary crutches, cane, shower chair, and [id number] commode all of which he used when he had previous surgery on his right hip. Subjective: Patient reports he does not feel anything when this PT came in for evaluation. He states he looks forward to going home and continue with outpatient physical therapy services. He also states that his lived an active life down he will skiing and cross country skiing in and out of state. 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 Objective: General Observation: Patient was seen lying in bed with cryocuff on left knee, anti-DVT pump on R leg, IV in the right UE, Peace catheter in place, and oxygen cannula on at 1 L/min. Mental Status: Alert and oriented x3 Pain: Denies Vital Signs: 122/76 mmHg, 63 bpm, 12 CPM, 35.9 ?C, 95% at 1 L of oxygen per minute. ROM: Right Upper Extremity: WFL Left Upper Extremity: WFL Right Lower Extremity: WFL Left Lower Extremity: Active left knee flexion -15 to 88 degrees in supine; -15 to 95 degrees when measured while sitting at edge of bed. Strength: Right Upper Extremity: WFL Left Upper Extremity: WFL Right Lower Extremity: WFL Left Lower Extremity: Hip flexors 3/5. Knee flexors 3-/5. Knee extensors 3-/5. Ankle plantar flexors/dorsiflexors 4/5. Sensation: Patient states he is able, although not fully, to feel the sole of his left foot and he is able to feel his muscles malena by the time weight bearing activity was assessed. Bed Mobility/Transfers: Rolling contact-guard assist Supine to sit contact-guard assist Sit to supine contact-guard assist Sit to stand minimal assist Stand to sit minimal assist Bed to chair minimal assist Chair to bed minimal assist Gait: Patient tolerated level surface ambulation inside room for 10 feet while holding onto front wheeled walker with a step to pattern with noticeably decreased flexion on the left side during swing and decreased knee extension as well during mid stance on L, minimal assist provided, no pain reported nor LOB observed. A second walking activity was done and patient was able to take 20 steps including one turn with no dizziness nor any other issues observed/reported. Balance: Static Sitting: Good Dynamic Sitting: Good Static Standing: Fair Dynamic Standing: Fair Special Tests: Mobility Limitations Standardized Measure [facility] AM-PAC 6 clicks Basic Mobility Inpatient Short Form: Raw Score: 17 CMS Score: 50.57% deficit Informed Consent/Education: Patient instructed in purpose of PT consult and plan of care. Assessment: Patient is a 77 year old male patient referred to physical therapy services with the diagnosis of status post left knee total arthroplasty due to primary osteoarthritis. Patient presents with clinical signs and symptoms consistent with functional mobility decline, weakness, and mobility dependence resulting from postoperative status, as demonstrated by the following impairment level findings: 1. Limited left knee mobility and strength 2. Impaired balance/stability 3. Impaired activity tolerance Impairments are contributing to the following functional limitations: 1. Dependent mobility ADLs 2. Increased completion time with transfer performance 3. Increase completion time with ambulation performance 4. Increased risk for falls due to weakness and limited left knee mobility Patient is assessed as a Moderate 79241 complexity based on the following: History: Status post left total knee arthroplasty with comorbidities as noted above under past medical history Examination: Functional limitations and impairments as noted above Presentation: Evolving Decision Making: Moderate complexity 81237 Goals: Goals X1 week 1. Supine-Sit independent 2. Sit-Supine independent 3. Sit-Stand independent 4. Stand-Sit independent 5. Bed-Chair independent 6. Chair-Bed in dependent 7. Gait with front-wheeled walker on level surfaces for at least 300 feet 8. Stairs independent while holding onto both rails 8 steps 9. Independent with home exercise program 10. Balance good for static and dynamic standing Plan of Care/Treatment Plan: 1-2x/day, 7 days/week x 1 week. Plan of care has been reviewed with the SURVEY PROJECT MANAGER providing the service under Physical Therapy direction. Initiate Physical Therapy intervention for strengthening, bed mobility, transfers, gait, stairs, balance training, use of assistive device. DISCHARGE RECOMMENDATIONS: To home with significant other with least restrictive device. May benefit from progression to outpatient physical therapy services to facilitate return to premorbid independent ADL performance and to potentially participate in premorbid recreational activities. TREATMENT CODE/TIME: 85088 25 minutes, 63778 12 minutes, 23157 12 minutes beginning at 1450 2 PM. Thank you for this referral. Geeta Hargrove, PT, DPT, CLT [facility]
[2018-06-06] MEDS: Atorvastatin 40 MG TAB 80 MG PO (20:19)
[2018-06-06] MEDS: Celecoxib 100 MG CAP PO (22:09)
[2018-06-07] VITALS (8 sets, daily range): BP systolic 114–144; BP diastolic 53–74; PULSE 70–83; RESP 18–20; TEMP 37–37.9; O2SAT 84–96
[2018-06-07] MEDS: oxyCODONE 5 MG TAB PO ×6 (00:47→21:57)
--- NOTE | 2018-06-07 07:52 | ROE_ITS ---
Date of service: 06/06/18 Time of Service: 10:48 Operative Note DATE OF PROCEDURE: 06/06/18 PRE-OP DIAGNOSIS: Left knee osteoarthritis POST-OP DIAGNOSIS: same PROCEDURE: Left Total Knee Replacement SURGEON: Rodri Brewer COMPUTER OPERATIONS ANALYST: Guillermina Moore ANESTHESIA: regional and spinal ESTIMATED BLOOD LOSS: 300 PATHOLOGY: none sent TOURNIQUET TIME: 32 COMPLICATIONS: None Patient was transported to: PACU Patient's condition: stable Implants: 1. Depuy Attune Posterior Stabilized Femoral Component, Size 7 2. Depuy Attune Fixed Platform Tibial Component, Size 6 3. Depuy Attune 7 x 8 mm fixed, Stabilized Poly 4. Depuy Attune Patellar Component, Size 38 mm Indications: I have seen Yoseph in clinic for symptoms of left knee arthritis, confirmed with radiographic findings. Yoseph has exhausted nonoperative methods and was having significant limitations in daily function and desired better function and less pain. I discussed the technical details of a knee replacement. I explained the risks of the procedure to include, but not limited to, bleeding, infection, pain, stiffness, fracture, damage to nerves and vessels, damage to muscles and tendons, loosening, need for repeat procedure, blood clot and cardiopulmonary demise. Despite these risks, Yoseph elected to proceed. Findings: There was significant signs of arthritis throughout the knee. Procedure Description: Yoseph was greeted in the preoperative holding area where the correct side was identified and marked. The consent was reviewed with the patient and signed. The history and physical was updated. All questions were answered. Preoperative mediacations were administered: Acetaminophen 1000mg, Celebrex 400mg, Gabapentin 300mg, and Oxycontin 10mg. An adductor canal block was then administered by the anesthesia team in the PACU. He was taken back to the operating room. A spinal anesthetic was attempted but was unsuccessful and therefore converted to a general anesthetic. The patient was placed into the supine position on the operating room table. A nonsterile tourniquet was placed high onto the leg but only used for cementing. Posts were placed for positioning during the procedure. All bony prominences were well padded. Prophylactic antibiotics in the form of cefazolin were administered. 1g of Tranxemic Acid was given intravenously within 30 minutes of incision. The left leg was then prepped with Chloraprep and draped in a s tandard fashion with impervious stockinette and extremity drape with Iodine impregnated skin protection. A timeout to confirm correct identity, side and site, procedure, allergies, anesthesia, and medical concerns was performed. With the knee in some flexion, a midline incision was made overlying the knee. Full thickness skin flaps were raised once the extensor mechanism was encountered. These were raised medially and laterally. Any bleeding was controlled with electrocautery. Once the extensor mechanism was fully exposed, a medial parapatellar arthrotomy was performed in a flexed position. All bleeding from the arthrotomy and the geniculate arteries was coagulated. A medial subperiosteal peel was performed with electrocautery to the midcoronal plane. The fat pad was removed while keeping the patellar tendon protected. The anterior distal femur synovium was removed for later visualization. The ACL and PCL were resected and the anterior horn of the lateral meniscus was transected. The knee was then flexed with the patella everted. Large osteophytes from the tibia were removed. Large osteophytes from the femur were removed. Using a step drill, and based on preoperative templating, the femoral canal was entered. This was done with a step drill without any difficulty. The intramedullary distal femoral cut guide was inserted, set to a 5 degree valgus cut and 10mm cut thickness. There was some hypoplasia of the lateral femoral condyle and any remnant cartilage of the medial femoral condyle was removed for appropriate thickness. The distal femoral cut guide was then held in position and pinned. With the soft tissues protected, the distal cut was performed. This was passed over a few times to ensure a planar cut. I then turned attention to the tibia. The extramedullary guide was placed onto the leg. The distal aspect was slid medial to adjust for position of center of ankle and stay in line with shaft of the tibia. Approximately 3-5 degrees of posterior slope was kept in the proximal cutting guide. The center of the guide was aligned with the PCL. The stylus was used to assess cut thickness. The medial side, most involved side, was set for a 4mm cut. This was then held in position and pinned into place with 2 additional pins and a cross pin for stability. The medial and lateral collateral ligaments were protected and the cut was performed. With this completed, it was assessed and noted to be of appropriate dimensions. The guide was removed. A spacer block was inserted and the knee was brought into extension. Unfortunately, the gap was still quite narrow and therefore I resected an additional 2 mm off the tibia. Afterwards, the 7 mm spacer block provided full extension, without hyperextension and with stability of both the medial and lateral collateral ligaments was assessed. The pins from the femur and the tibia were then removed. The distal femur was then sized. The anterior stylus was placed onto the lateral ridge of the anterior femur. This indicated a size 7 femur. The external rotation of the guide was adjusted to 5 degrees to match the epicondylar axis, perpendicular to Chago?s line. The 4-in-1 cutting guide was the placed. The posterior medial femur cut was evaluated and appeared of good thickness. The spacer block was inserted underneath the cutting guide and stability was confirmed in 90 degrees of flexion. An franca wing was used to confirm appropriate position of the anterior cut to avoid notching. This cutting guide was ensured to be flush on the cut surface and then pinned into p lace with headed pins. While protecting the soft tissues, quad tendon, and collateral ligaments, the anterior and posterior cuts were performed with a saw. The central two pins were removed and the posterior and anterior chamfers were cut next. The notch-cutting guide was placed. This was pinned to lateralize the femoral component as much as possible while keeping it flush on the cut surface. This was then pinned into position. A reciprocating saw was used to make the notch cut. A rasp smoothed the cut surfaces. A trial posterior stabilized femoral component was then inserted, impacted down to the cut surfaces, and the lug holes were drilled. A provisional trial tibial component was placed and the knee was brought through range of motion. There was noted to be excellent extension and flexion. There was no significant instability. The patella was tracking without thumbs. The tibial cut surface was fully exposed. The medial and lateral menisci were removed. The tibia was then sized as a 6. The tibia had been previously marked during trialing to correspond to the center of the tibial component to help with rotation. The trial was aligned to this guillermina, approximately rotated to the medial 1/3rd of the tibial tubercle. The trial was pinned into place. The tibia was prepared with a reamer and a keel punch. The knee was then brought into extension and the patella was measured as 30 mm. Using the patellar clamp and cut guide, this was resected to a flat surface with at least 13mm of thickness remaining. The size 38 patella fit the best. This was oriented and then clamped into position. The lugs were drilled. The trial components were removed. The final components, except for the polyethylene were opened on the back table. The periosteal and capsular tissues, especially posteriorly, around the knee were then systematically injected with a periarticular cocktail consisting of 50cc 0.25% Marcaine, 30mg Ketorolac, 20cc of Exparal and 50cc of injectable saline. The tourniquet was then inflated to 275mmHg. The knee was thoroughly irrigated with a pulse lavage and dried. On the back table, with the implants opened, the cement was mixed. 2 batches of antibiotic laden cement were prepared with vacuum assistance. After the cement was ready a small amount was placed on to the back side of the tibial component at the keel. A small amount was placed onto the posterior flange of the femur. Cement was manual pressurized and impregnated into the cut surface of the tibia. The tibial component was then inserted into the cut surface and impacted into position. Excess cement was removed and the component was reimpacted. Again, excess cement was removed and our attention was then turned to the femur. The femoral cut surface was once again dried and cement was manually impacted into the cut surface. The femoral component was lined with the lug holes and impacted. Excess cement was removed. It was ensured to be down against the cut surface. The trial polyethylene was then inserted and the leg was brought out into full extension for the duration of the cement curing process, approximately 15min. Cement was lastly manually impacted into the cut surface of the patella and the patellar button was clamped into position and held. During this process attention was turned to the gutters of the knee and for all interfaces for any excess cement. After the cement had finally cured, approximately 15min, the clamp was removed from the patella and the knee was taken through range of motion. A size 8 mm polyethylene component provided the best range of motion and stability with less than 2mm gapping with medial and lateral stress and full extension without significant hyperextension. The patella was tracking with a no-thumbs technique. The trial poly was removed and once again the knee was checked for any loose, excess, or errant cement. The poly component was then inserted and impacted into position after cleaning and drying the tibial tray. The capsule was then reapproximated with a No. 1 Vicryl at multiple locations. The capsule was finally closed with a No. 2 Stratafix, barbed suture. The tourniquet was then released and the arthrotomy appeared watertight without significant bleeding. The second dosing of 1g TXA was started. Deep tissues were then reapproximated with 0 Vicryl and 2-0 Vicryl. The skin was closed with a running 3-0 Monocryl in a subcuticular fashion. This was reinforced with skin glue. A Mepilex silver dressing was applied along with a [id number] KENNETH wrap. A CryoCuff was applied. Yoseph was transferred to the hospital bed without difficulty an suffering no apparent complication. Yoseph has a good prognosis. Physical therapy will start today and without restrictions, weight-bearing as tolerated. Aspirin 325 mg daily, his home dose, will be used for DVT prophylaxis.
[2018-06-07] MEDS: Celecoxib 100 MG CAP PO ×2 (08:10→19:56)
[2018-06-07] MEDS: Aspirin 325 MG TAB PO (08:10)
[2018-06-07] MEDS: amLODIPine 10 MG TAB PO (08:11)
[2018-06-07] MEDS: Metoprolol CR 25 MG TABCR 75 MG PO (08:11)
--- NOTE | 2018-06-07 10:33 | PT.INTREAT ---
Date of service: 06/07/18 Time of Service: 10:33 PT Notes 06/07/18 SUBJECTIVE: Yoseph stating he has a little more discomfort today verse yesterday. He notes that he monitors his oxygen at home and it runs between 89-92% at baseline. He is generally very active person and is anxious to get up and start moving around. OBJECTIVE: Supine in bed. Agreeable to PT treatment. Nursing reports to walk without oxgyen. TRANSFERS Supine to sit: I Sit to stand: CGA Stand to sit: CGA GAIT Device: FWW Weight bearing: WBAT L Assist: CGA Distance: 75'x2 Deviation: Step to gait pattern progressing to step through VITALS: 92% on 2 L NC at rest. Removed supplemental O2 for gait per nursing. Post gait pt is 84% recovering quickly to 90%. Post PT pt resting at 87%. He was placed back on 2 L NC. STAIRS: 3-4 steps, 2-6 steps, bilateral rails, step to pattern, SBA THEREX: Light LE strengthening, Active SLR with significant extension lag noted. See flow sheet. ASSESSMENT: Progressing well with functional mobility and transfers. Pt able to stand independently to toilet and wash up at the sink. His oxygen saturation does drop with activity. No complaints of SOB throughout. PLAN: Continue per established POC. Direct time: 9:40-10:10([id number]) Yolis Murphy PTA
--- NOTE | 2018-06-07 10:39 | PTTR_ITS ---
Date of service: 06/07/18 Time of Service: 10:33 PT Notes 06/07/18 SUBJECTIVE: Yoseph stating he has a little more discomfort today verse yesterday. He notes that he monitors his oxygen at home and it runs between 89-92% at baseline. He is generally very active person and is anxious to get up and start moving around. OBJECTIVE: Supine in bed. Agreeable to PT treatment. Nursing reports to walk without oxgyen. TRANSFERS Supine to sit: I Sit to stand: CGA Stand to sit: CGA GAIT Device: FWW Weight bearing: WBAT L Assist: CGA Distance: 75'x2 Deviation: Step to gait pattern progressing to step through VITALS: 92% on 2 L NC at rest. Removed supplemental O2 for gait per nursing. Post gait pt is 84% recovering quickly to 90%. Post PT pt resting at 87%. He was placed back on 2 L NC. STAIRS: 3-4 steps, 2-6 steps, bilateral rails, step to pattern, SBA THEREX: Light LE strengthening, Active SLR with significant extension lag noted. See flow sheet. ASSESSMENT: Progressing well with functional mobility and transfers. Pt able to stand independently to toilet and wash up at the sink. His oxygen saturation do es drop with activity. No complaints of SOB throughout. PLAN: Continue per established POC. Direct time: 9:40-10:10([id number]) Yolis Murphy PTA
--- NOTE | 2018-06-07 12:45 | W.PM.PROGNOT ---
Date of Service Date of service: 06/07/18 Time of Service: 12:45 Assessment and Plan (1) Primary osteoarthritis of left knee: Current visit: No Status: Chronic General appears to be doing well. He was able to ambulate as well as go up and down some stairs. He is requiring some oxygen support his saturations at this point although it is very minimal. His pain is controlled with oral pain medications. I would like to continue to watch him today to make sure his pain seems controlled and make sure his oxygen requirement decreases. He likely has some underlying lung disease which is poorly diagnosed at this time. He should start the incentive spirometry. We will continue to monitor his oxygen status with hopeful discharge home tomorrow. Continue aspirin for DVT prophylaxis. Continue PT. Subjective Interval history since last seen: Yoseph reports be doing well in general. His pain is been well controlled. He did have some pain this morning which responded well to pain medication. Unfortunately, he has had some hypoxia. Responds easily to oxygen and seems to happen mostly when he is ambulating. He had a level dropped on 85%. He is without chest pain, shortness of breath, palpitations. He denies numbness or tingling within the leg. Exam Narrative Exam Narrative: Evaluation of the left leg shows dressing which is clean dry and intact. He is able to straight leg raise. He is able to dorsiflex and plantar flex the foot as well as extend and flex the great toe. He endorses full sensation over the superficial and deep peroneal nerve and tibial nerve. Objective Objective Clinical Data: Vital Signs Temperature 37.1 C 06/07/18 11:10 Temperature Source Tympanic 06/07/18 11:10 Pulse 72 06/07/18 11:10 Pulse Rhythm Regular 06/07/18 11:51 Respiratory Rate 20 06/07/18 11:10 Respiratory Effort Non-Labored 06/07/18 11:51 Respiratory Depth Shallow 06/07/18 11:51 Respiratory Pattern Normal 06/07/18 11:51 Blood Pressure 136/65 06/07/18 11:10 Pulse Oximetry 96 06/07/18 11:10 Respiratory End-tidal CO2 36 06/06/18 12:15 Oxygen Delivery Method Nasal Cannula 06/07/18 11:10 Oxygen Flow Rate 2 06/07/18 11:10 Pain Level 7 06/07/18 11:08 Comment 06/07/18 07:42 Intake & Output 06/06/18 06/07/18 06/07/18 23:59 11:59 23:59 Intake Total 1665.333 / 2935.333 850 / 1950 1100 / 1950 Output Total 725 / 1075 1949 Balance 940.333 / 1860.333 -1100 / 0 1100 / 0 Intake: IV 945.333 / 2215.333 200 / 1300 1100 / 1300 Oral 720 / 720 650 / 650 Output: Urine 725 / 775 1949 Other: Urine Color Light Nerissa Light Nerissa Urine Appearance Clear Clear Comment patient encouraged to take more po intake with student nurse assisting, patient was paced in a supine position , nmade comfortable, using clean technique, balloon was deflated, and catheter removed Emesis Description None
--- NOTE | 2018-06-07 13:36 | PHARADMIT ---
Admission Pharmacy Clinical Review L knee DJD Code Status Full Code Current Weight 89.1 kg Renally Cleared and Narrow Therapeutic Index Meds Crcl ~69.00 mL/min current meds okay QTc Value / Action Taken QTc 408 BP Control, Fever BP 136/65 afebrile Electrolytes reviewed n/a DVT Prophylaxis none Opiate Usage / Scheduled Bowel Regimen Ordered prn/prn Plt/SCr for Heparin / Enoxaparin n/a INR for Warfarin n/a H/H stable, WBC/Bands n/a Antibiotic appropriateness n/a Cultures and Sensitivities n/a Surgical ABX d/c within 24 hr yes DM control / Insulin Dosing n/a Heart Failure (Check EF%) (KENNETH's, B-Block, Diuretics) amlodipine, metoprolol, IV to PO Switch n/a Home Meds Reviewed yes Home Meds Not Ordered all ordered Comments possible discharge tomorrow
--- NOTE | 2018-06-07 15:21 | PT.INTREAT ---
Date of service: 06/07/18 Time of Service: 15:21 PT Notes 06/07/18 SUBJECTIVE: Yoseph stating he is doing well. He did get some pain medication after our morning session of PT due to increase in discomfort. OBJECTIVE: Seated EOB. Agreeable to PT treatment. TRANSFERS Supine to sit: I Sit to supine: I Sit to stand: SBA Stand to sit: SBA GAIT Device: FWW Weight bearing: WBAT L Assist: SBA Distance: 75'x2 Deviation: Cues for step through gait pattern Therex: LE strengthening performed as noted on flow sheet. Pt able to perform active SLR although with 20 degrees extension lag. See flow sheet for specifics. Stairs: 3- 4'' step, 2- 6 step, 2 rails, Step to pattern, SBA Vitals: 92% on 2 L NC at rest. Drops to 84% on RA with gait recovering to 90% with pursed lip breathing . Returned on 2 L NC post session. ASSESSMENT: Progressing well today PT with step through gait pattern. Pt has good technique and management with stairs. His oxygen saturation continues to drop with activity as noted above. PLAN: Continue current POC progressing toward's established goals. Session # 2: 25 minutes([id number], [id number]) Yolis Murphy PTA
[2018-06-07] MEDS: HYDROmorphone 2 MG/ML VIAL 0.5 MG IVP (16:12)
[2018-06-07] MEDS: Normal Saline Flush 10 ML SYR IV (16:14)
--- NOTE | 2018-06-07 17:20 | INITIAL_ITS ---
Care Management Initial Assess REASON FOR HOSPITALIZATION:: L Knee DJD PAST MEDICAL HISTORY/PAST SURGICAL HISTORY:: Coronary artery disease with an DE 06/2014 (S/P 3-stent to LAD, H/O gallstone with gallbladder attacks, H/O melanoma x2 and basal cell carcinoma x1, (R) shoulder manipulation, H/O colon polyps, Achilles tendon tear, Rib fractures, H/O nicotine dependence, Presumed GERD. PREVIOUS FUNCTIONAL STATUS/SOCIAL/FAMILY SUPPORTS:: Pt resides with his SO Manisha in [place]. 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 Pt has three children whom are supportive. Pt is able to manage his ADL's. CURRENT FUNCTIONAL STATUS:: Currently Pt is lying in bed this morning. Pt to go to the OR this afternoon with Dr. Brewer ADVANCE DIRECTIVES:: None on file Has patient been provided with information about the portal?: Yes Did the patient sign up for the portal?: No CODE STATUS:: Full Code INSURANCE COVERAGE / FINANCIAL ISSUES:: Medicare, [employer] [place] Insurance CURRENT HOME/COMMUNITY SERVICES/EQUIPMENT:: KATHRYN Estrada PRIMARY CARE PHYSICIAN:: Berhane Zhao POTENTIAL DISCHARGE NEEDS:: F/U appointment with Dr. Brewer, new orders for VNA/PT anticipated. PATIENT/FAMILY EDUCATION NEEDS:: Review discharge instructions, discuss Ask Me Three. ANTICIPATED BARRIERS TO DISCHARGE:: None identified. TRANSPORTATION:: Via private vehicle with his significant other, Manisha. PLAN:: F/U appointment with Dr. Brewer, new orders for VNA/PT anticipated. Via private vehicle with his significant other, Manisha.
[2018-06-07] MEDS: Atorvastatin 40 MG TAB 80 MG PO (19:56)
[2018-06-07] MEDS: Gabapentin 300 MG CAP PO (21:57)
[2018-06-08 03:43] VITALS: BP 140/75; PULSE 75; RESP 18; TEMP 37; O2SAT 94
[2018-06-08 07:45] VITALS: BP 158/81; PULSE 77; RESP 18; TEMP 36.8; O2SAT 92
[2018-06-08] MEDS: Aspirin 325 MG TAB PO (08:15)
[2018-06-08] MEDS: Metoprolol CR 25 MG TABCR 75 MG PO (08:15)
[2018-06-08] MEDS: amLODIPine 10 MG TAB PO (08:15)
[2018-06-08] MEDS: Celecoxib 100 MG CAP PO (08:15)
--- NOTE | 2018-06-08 08:19 | DSE_ITS ---
Date of service: 06/08/18 Time of Service: 09:18 DS: Diagnosis Discharge Diagnosis (1) Primary osteoarthritis of left knee: Status: Chronic Discharge Plan Disposition Patient Disposition: HOME W/HOME HEALTH SERVICE Condition: Good Discharge Details Reason For Visit: L KNEE DJD Admit Date/Time: 06/06/18 08:01 Admit Provider: Rodri Brewer Attending Provider: Rodri Brewer Primary Care Provider: Berhane Zhao Hospital Course Hospital Course: Patient was admitted to the medical/surgical floor following the procedure. It was tolerated well without any notable medical, surgical, or anesthetic complications. Mobilization began postoperatively. The burns catheter was removed and voiding spontaneously. Oxygen saturation was in the lower 90s with occassional drops to mid-80s with ambulation although without symptoms. This was followed with intermittent Oxygen. IS was initiated and continued. Other vitals were stable. Physical therapy worked with the patient and was cleared for discharge home. He is to see his PCP in follow-up for the poor oxygenation which is likely related to underlying lung disease. Home Meds and New Rx's Prescriptions: New acetaminophen 500 mg tablet 1,000 mg PO Q8H PRN (Reason: pain) Qty: 90 RF: 3 oxycodone 5 mg tablet 5 mg PO Q4H Qty: 18 RF: 0 celecoxib 100 mg capsule 100 mg PO BID Qty: 60 RF: 0 Continued atorvastatin 80 MG tablet 80 mg PO HS RF: 0 nitroglycerin [Nitrostat] 0.4 MG tablet, sublingual 0.4 mg Sublingual ONCE RF: 0 Prilosec OTC 20 MG tablet,delayed release (DR/EC) 40 mg PO DAILY PRNRF: 0 aspirin 325 MG tablet 325 mg PO DAILY Qty: 90 RF: 0 amlodipine 10 mg Tablet 10 mg PO DAILY RF: 0 metoprolol succinate 25 mg Tablet Extended Release 24 Hr 75 mg PO DAILY RF: 0 Discharge Instructions Instructions: Knee Replacement (DC) Additional Instructions: Dr. Brewer?s Total Knee Discharge Instructions Activity: The most important activity is to walk. You should try to take short walks a few times a day. It is important that when resting you work on keeping the knee straight. Avoid putting a pillow behind the knee as this will encourage flexion. Work on range of motion exercises as provided by Physical Therapy. - You should wear the ZEHRA hose on both legs for 4 weeks. Dressing: Keep the surgical dressing in place for at least another 3 days. After this it may be removed and replace with light gauze and tape or a Mepilex dressing. It may get wet after 3 days but avoid soaking the dressing. If it gets wet, just lightly pat dry. Medications: - You should take Tylenol and anti-inflammatory (Celebrex) as your primary pain control medications - You have been prescribed a stronger pain medication (Oxycodone) for breakthrough pain, take as needed as prescribed. - You will be taking Aspirin 325mg once a day for DVT prevention unless instructed otherwise. - If you have constipation you should take Colace or Miralax (both [id number]). It takes most people 3-4 days to have a bowel movement. Follow-up: 2 weeks 1. Encounter Date and Reason I certify that JOSE SYED was seen by Rodri Brewer MD on 06/08/18 and that I had a [id number] encounter with this patient that meets the physician face to face encounter requirements. 2. Clinical Findings Supporting Skilled Need and Homebound Status I certify that home health services are medically necessary, include either intermittent intermediate and/or physical/speech therapy, and that this patient is homebound in that absences from the home require considerable and taxing effort and are infrequent or of short duration, or are attributable to the need to receive medical care. [X] (a) Attached documentation from encounter provides clinical findings supporting skilled need and homebound status (including what assistance patient requires to leave the home). The encounter with the patient was in whole, or in part, for the following medical condition, which is the primary reason for home health care: L KNEE DJD s/p TKA Group Home: Yoseph would benefit from intermediate during the initial discharge and post-operative period. He has had lower than expected oxygenation values but stable on room air. His oxygenation and vitals should be assessed especially in the setting of multiple medications including narcotic pain medication to treat post-operative pain. Physical Therapy: Yoseph would benefit from physical therapy to address his weakness, stiffness, and gait abnormalities. He is s/p TKA and will benefit from PT to focus on knee extension, flexion and quad strengthening in addition to gait training using assistive devices until gait improves. Speech Therapy: Homebound: Yoseph is unable to leave his home unassisted due to significant weakness and gait abnormalities. 3. Certification and Authentication I certify that I composed the above information based on my clinical judgement relating to this patient's medical condition and, if applicable, clinical findings communicated to me by the NPP or inpatient physician who performed the Home Health Referral. All further orders will be obtained through Dr. Brewer Stand Alone Forms: Nursing Discharge Form Referrals: Rodri Brewer MD [ [facility] STAFF PHYSICIAN] - 06/21/18 3:00 pm () Activity:: Activity as Tolerated Equipment/Supplies:: Walker Diet:: As Tolerated Discharge Orders Discharge Orders: Discharge Order (Routine); Ordered 06/08/18 Ordered By: Rodri Brewer DS: Data Vitals/I&O Vitals and I&O: Vital Signs Temperature 37 C 06/08/18 03:43 Temperature Source Tympanic 06/08/18 03:43 Pulse 75 06/08/18 03:43 Pulse Rhythm Regular 06/07/18 21:12 Respiratory Rate 18 06/08/18 03:43 Respiratory Effort Non-Labored 06/07/18 21:12 Respiratory Depth Normal 06/07/18 21:12 Respiratory Pattern Normal 06/07/18 21:12 Blood Pressure 140/75 06/08/18 03:43 Pulse Oximetry 94 L 06/08/18 03:43 Respiratory End-tidal CO2 36 06/06/18 12:15 Oxygen Delivery Method Nasal Cannula 06/08/18 03:43 Oxygen Flow Rate 2 06/08/18 03:43 Pain Level 3 06/07/18 22:57 Comment 06/07/18 07:42 Intake & Output 06/07/18 06/07/18 06/08/18 11:59 23:59 11:59 Intake Total 850 / 2490 1640 / 2490 Output Total 1949 / 1950 550 / 550 Balance -1100 / 540 1640 / 540 -550 / -550 Intake: IV 200 / 1300 1100 / 1300 Oral 650 / 1190 540 / 1190 Output: Urine 1949 / 1949 550 / 550 Other: Urine Color Light Nerissa Yellow Straw Urine Appearance Clear Clear Clear Urine Odor Normal Comment with student nurse assisting, patient was paced in a supine position , nmade comfortable, using clean technique, balloon was deflated, and catheter removed patient up to toilet independently Voiding Methods Toilet Urinal [facility] Medical History Hyperlipidemia (Acute) History of [place] (myocardial infarction) (Acute) Cortical cataract of left eye (Resolved) Cortical cataract of right eye (Resolved) Nuclear sclerotic cataract of right eye (Resolved) Nuclear sclerotic cataract of left eye (Ruled-out) Surgical History Closed fracture of right hip requiring operative repair (Acute) History of tonsillectomy and adenoidectomy (Acute) Status post cataract extraction and insertion of intraocular lens of right eye (Acute 04/10/18) History of heart artery stent (Chronic) Status post cataract extraction and insertion of intraocular lens of left eye (Chronic 04/24/18) Social History Smoking/Tobacco Use Status: Former Tobacco Use Drug use: Never Do you feel safe in your relationship?: Yes
[2018-06-08 09:01] VITALS: O2SAT 95
[2018-06-08] MEDS: Normal Saline Flush 10 ML SYR IV (09:54)
[2018-06-08] MEDS: oxyCODONE 5 MG TAB PO (09:54)
--- NOTE | 2018-06-08 11:17 | PDOC.CMDIS ---
LACE Index Scoring Tool - Questions: Length of Stay (in days): 2 Acuity (Admit via E.D.?): Yes Comorbidities: Previous M.I. E.D. Visits: 0 - Answers: Total Score: 6 Risk of Readmission: Low Risk Care Management Discharge Reason for Hospitalization: L Knee DJD Discharge Plan: Reggie will return home with new orders for VNA/RN/PT through [facility]. faxed notification of pending referral. 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 He will transport via private vehicle with his significant other; Manisha. Patient/Family Education Needs: Review discharge instructions, discuss self care needs, Ask Me Three. Services Needed at Discharge: Home Health Care Services (RN/PT)
--- NOTE | 2018-06-08 11:35 | CMDISCH_ITS ---
LACE Index Scoring Tool - Questions: Length of Stay (in days): 2 Acuity (Admit via E.D.?): Yes Comorbidities: Previous M.I. E.D. Visits: 0 - Answers: Total Score: 6 Risk of Readmission: Low Risk Care Management Discharge Reason for Hospitalization: L Knee DJD Discharge Plan: Reggie will return home with new orders for VNA/RN/PT through [facility]. faxed notification of pending referral. 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 He will transport via private vehicle with his significant other; Manisha. Patient/Family Education Needs: Review discharge instructions, discuss self care needs, Ask Me Three. Services Needed at Discharge: Home Health Care Services (RN/PT)
[2018-06-08 11:48] VITALS: BP 127/67; PULSE 72; RESP 22; TEMP 36; O2SAT 93
--- NOTE | 2018-06-08 11:55 | PT.INTREAT ---
Date of service: 06/08/18 Time of Service: 11:55 PT Notes 06/08/18 SUBJECTIVE: Yoseph stating he has 5/10 pain today. He is probably due for pain medication. He also notes some stiffness sitting in the chair and would like to get up and move. OBJECTIVE: Seated in chair. Agreeable to PT treatment. TRANSFERS Supine to sit: I Sit to supine: I Sit to stand: SBA Stand to sit: SBA GAIT Device: FWW Weight bearing: WBAT L Assist: SBA Distance: 75'x2 Deviation: step to pattern progressing to step through as he becomes less stiff. Therex: Review HEP including QS, SLR and gentle ROM activities. STAIRS: 3- 4 steps, 2- 6 steps, 2 rails, Step to pattern, SBA VITALS: 88-93% throughout on RA ASSESSMENT: Pt has a good understanding of his light home exercise program. He has no difficulty with stair management or walker management. PLAN: Pt will be discharged home today. See discharge summary for details. Treatment time: 25 minutes([id number], [id number]) Yolis Murphy, INFORMATION TECHNOLOGY COORDINATOR
--- NOTE | 2018-06-08 15:19 | PT.INDS ---
Date of service: 06/08/18 PT Notes Inpatient Physical Therapy Discharge Summary Date: 06/06/2018 Referring Doctor: Rodri Brewer MD PT Orders: PT CONSULT: Status post left TKA Precautions: Fall. Standard. Patient Profile/Admitting Diagnosis: Order for functional mobility training, strengthening, and balance retraining of 77-year-old male status post left TKA secondary to left primary osteoarthritis was received today. PMHX: Medical History Hyperlipidemia (Acute) History of [place] (myocardial infarction) (Acute) Cortical cataract of left eye (Resolved) Cortical cataract of right eye (Resolved) Nuclear sclerotic cataract of right eye (Resolved) Nuclear sclerotic cataract of left eye (Ruled-out) Surgical History Closed fracture of right hip requiring operative repair (Acute) History of tonsillectomy and adenoidectomy (Acute) History of heart artery stent (Chronic) Status post cataract extraction and insertion of intraocular lens of right eye (Acute 04/10/18) Status post cataract extraction and insertion of intraocular lens of left eye (Chronic 04/24/18) Social History/Home Situation: Patient lives with significant other in a two-story house with 3 steps to enter and rails on both sides. Patient states he has 8 steps to the second floor of the house but he plans on staying on the first floor, where he has everything, upon discharge from the hospital. Prior to admission he was independent with all aspects of ADLs but has increasingly been limited by pain on the left knee due to arthritis. Current Functional Limitations: CGA with bed mobility, minimal assist with transfers and ambulation using front-wheeled walker. Equipment Owned/DME: Patient states that he has a front wheeled walker, axillary crutches, cane, shower chair, and [id number] commode all of which he used when he had previous surgery on his right hip. Subjective: Patient reports he does not feel anything when this PT came in for evaluation. He states he looks forward to going home and continue with outpatient physical therapy services. He also states that his lived an active life down he will skiing and cross country skiing in and out of state. 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 Objective: General Observation: Patient was seen lying in bed with cryocuff on left knee, anti-DVT pump on R leg, IV in the right UE, Peace catheter in place, and oxygen cannula on at 1 L/min. Mental Status: Alert and oriented x3 Pain: Denies Vital Signs: 122/76 mmHg, 63 bpm, 12 CPM, 35.9 ?C, 95% at 1 L of oxygen per minute. ROM: Right Upper Extremity: WFL Left Upper Extremity: WFL Right Lower Extremity: WFL Left Lower Extremity: Active left knee flexion -15 to 88 degrees in supine; -15 to 95 degrees when measured while sitting at edge of bed. Strength: Right Upper Extremity: WFL Left Upper Extremity: WFL Right Lower Extremity: WFL Left Lower Extremity: Hip flexors 3/5. Knee flexors 3-/5. Knee extensors 3-/5. Ankle plantar flexors/dorsiflexors 4/5. Sensation: Patient states he is able, although not fully, to feel the sole of his left foot and he is able to feel his muscles malena by the time weight bearing activity was assessed. Bed Mobility/Transfers: Rolling independent Supine to sit independent Sit to supine independent Sit to stand SBA Stand to SBA Bed to chair SBA Chair to SBA Gait: Patient tolerated level surface ambulation inside room for 75 feet while holding onto front wheeled walker with a step to pattern with decreased flexion on the left side during swing and decreased knee extension as well during mid stance on L, minimal assist provided, no pain reported nor LOB observed. A second walking activity was done and patient was able to take same distance including one turn with no dizziness nor any other issues observed/reported. Per RETREAD OPERATOR report, patient's oxygen saturation was between 88-93% in room air after activity. Patient has been educated and trained on pursed lip breathing to maximize functional performance. Balance: Static Sitting: Good Dynamic Sitting: Good Static Standing: Fair Dynamic Standing: Fair Special Tests: Mobility Limitations Standardized Measure [facility] AM-PAC 6 clicks Basic Mobility Inpatient Short Form: Raw Score: 18 CMS Score: 47% deficit Assessment: Patient is a 77 year old male patient referred to physical therapy services with the diagnosis of status post left knee total arthroplasty due to primary osteoarthritis. Patient presents with clinical signs and symptoms consistent with functional mobility decline, weakness, and mobility dependence resulting from postoperative status, as demonstrated by the following impairment level findings: 1. Limited left knee mobility and strength 2. Impaired balance/stability 3. Impaired activity tolerance Impairments are contributing to the following functional limitations: 1. Dependent mobility ADLs 2. Increased completion time with transfer performance 3. Increase completion time with ambulation performance 4. Increased risk for falls due to weakness and limited left knee mobility Patient is assessed as a Moderate [id number] complexity based on the following: History: Status post left total knee arthroplasty with comorbidities as noted above under past medical history Examination: Functional limitations and impairments as noted above Presentation: Evolving Decision Making: Moderate complexity [id number] Goals: Goals X1 week 1. Supine-Sit independent MET 2. Sit-Supine independent MET 3. Sit-Stand independent NOT MET 4. Stand-Sit independent NOT MET 5. Bed-Chair independent NOT MET 6. Chair-Bed in dependent NOT MET 7. Gait with front-wheeled walker on level surfaces for at least 300 feet NOT MET 8. Stairs independent while holding onto both rails 8 steps NOT MET 9. Independent with home exercise program MET 10. Balance good for static and dynamic standing NOT MET DISCHARGE RECOMMENDATIONS: Patient goes home today with significant other Manisha to place of residence with or the orders for home health PT/OT/SN through [facility] DC requested to ensure a smooth transition to home, to evaluate home safety, and to reduce fall risk. May benefit from progression to outpatient physical therapy services to facilitate return to premorbid independent ADL performance and to potentially participate in premorbid recreational activities. TREATMENT CODE/TIME: N/A Thank you for this referral. Geeta Hargrove, PT, DPT, CLT [facility] Dates: []
--- NOTE | 2018-06-08 15:31 | INDS_ITS ---
Date of service: 06/08/18 PT Notes Inpatient Physical Therapy Discharge Summary Date: 06/06/2018 Referring Doctor: Rodri Brewer MD PT Orders: PT CONSULT: Status post left TKA Precautions: Fall. Standard. Patient Profile/Admitting Diagnosis: Order for functional mobility training, strengthening, and balance retraining of 77-year-old male status post left TKA secondary to left primary osteoarthritis was received today. PMHX: Medical History Hyperlipidemia (Acute) History of [place] (myocardial infarction) (Acute) Cortical cataract of left eye (Resolved) Cortical cataract of right eye (Resolved) Nuclear sclerotic cataract of right eye (Resolved) Nuclear sclerotic cataract of left eye (Ruled-out) Surgical History Closed fracture of right hip requiring operative repair (Acute) History of tonsillectomy and adenoidectomy (Acute) History of heart artery stent (Chronic) Status post cataract extraction and insertion of intraocular lens of right eye (Acute 04/10/18) Status post cataract extraction and insertion of intraocular lens of left eye (Chronic 04/24/18) Social History/Home Situation: Patient lives with significant other in a two- story house with 3 steps to enter and rails on both sides. Patient states he has 8 steps to the second floor of the house but he plans on staying on the first floor, where he has everything, upon discharge from the hospital. Prior to admission he was independent with all aspects of ADLs but has increasingly been limited by pain on the left knee due to arthritis. Current Functional Limitations: CGA with bed mobility, minimal assist with transfers and ambulation using front-wheeled walker. Equipment Owned/DME: Patient states that he has a front wheeled walker, axillary crutches, cane, shower chair, and [id number] commode all of which he used when he had previous surgery on his right hip. Subjective: Patient reports he does not feel anything when this PT came in for evaluation. He states he looks forward to going home and continue with outpatient physical therapy services. He also states that his lived an active life down he will skiing and cross country skiing in and out of state. 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 Objective: General Observation: Patient was seen lying in bed with cryocuff on left knee, anti-DVT pump on R leg, IV in the right UE, Peace catheter in place, and oxygen cannula on at 1 L/min. Mental Status: Alert and oriented x3 Pain: Denies Vital Signs: 122/76 mmHg, 63 bpm, 12 CPM, 35.9 ?C, 95% at 1 L of oxygen per mi nute. ROM: Right Upper Extremity: WFL Left Upper Extremity: WFL Right Lower Extremity: WFL Left Lower Extremity: Active left knee flexion -15 to 88 degrees in supine; -15 to 95 degrees when measured while sitting at edge of bed. Strength: Right Upper Extremity: WFL Left Upper Extremity: WFL Right Lower Extremity: WFL Left Lower Extremity: Hip flexors 3/5. Knee flexors 3-/5. Knee extensors 3-/5. Ankle plantar flexors/dorsiflexors 4/5. Sensation: Patient states he is able, although not fully, to feel the sole of his left foot and he is able to feel his muscles malena by the time weight bearing activity was assessed. Bed Mobility/Transfers: Rolling independent Supine to sit independent Sit to supine independent Sit to stand SBA Stand to SBA Bed to chair SBA Chair to SBA Gait: Patient tolerated level surface ambulation inside room for 75 feet while holding onto front wheeled walker with a step to pattern with decreased flexion on the left side during swing and decreased knee extension as well during mid stance on L, minimal assist provided, no pain reported nor LOB observed. A second walking activity was done and patient was able to take same distance including one turn with no dizziness nor any other issues observed/reported. Per [employer] report, patient's oxygen saturation was between 88-93% in room air after activity. Patient has been educated and trained on pursed lip breathing to maximize functional performance. Balance: Static Sitting: Good Dynamic Sitting: Good Static Standing: Fair Dynamic Standing: Fair Special Tests: Mobility Limitations Standardized Measure [facility] AM-PAC 6 clicks Basic Mobility Inpatient Short Form: Raw Score: 18 CMS Score: 47% deficit Assessment: Patient is a 77 year old male patient referred to physical therapy services with the diagnosis of status post left knee total arthroplasty due to primary osteoarthritis. Patient presents with clinical signs and symptoms consistent with functional mobility decline, weakness, and mobility dependence resulting from postoperative status, as demonstrated by the following impairment level findings: 1. Limited left knee mobility and strength 2. Impaired balance/stability 3. Impaired activity tolerance Impairments are contributing to the following functional limitations: 1. Dependent mobility ADLs 2. Increased completion time with transfer performance 3. Increase completion time with ambulation performance 4. Increased risk for falls due to weakness and limited left knee mobility Patient is assessed as a Moderate [id number] complexity based on the following: History: Status post left total knee arthroplasty with comorbidities as noted above under past medical history Examination: Functional limitations and impairments as noted above Presentation: Evolving Decision Making: Moderate complexity [id number] Goals: Goals X1 week 1. Supine-Sit independent MET 2. Sit-Supine independent MET 3. Sit-Stand independent NOT MET 4. Stand-Sit independent NOT MET 5. Bed-Chair independent NOT MET 6. Chair-Bed in dependent NOT MET 7. Gait with front-wheeled walker on level surfaces for at least 300 feet NOT MET 8. Stairs independent while holding onto both rails 8 steps NOT MET 9. Independent with home exercise program MET 10. Balance good for static and dynamic standing NOT MET DISCHARGE RECOMMENDATIONS: Patient goes home today with significant other M ichelle to place of residence with or the orders for home health PT/OT/SN through [facility] [place] requested to ensure a smooth transition to home, to evaluate home safety, and to reduce fall risk. May benefit from progression to outpatient physical therapy services to facilitate return to premorbid independent ADL performance and to potentially participate in premorbid recreational activities. TREATMENT CODE/TIME: N/A Thank you for this referral. Geeta Hargrove, PT, DPT, CLT [facility] Dates: []
== END 2018-06-08 12:58 | disposition home health service (06) | DRG 470 ==
LOC: PDS 10:55 → MS 12:55
PROVIDERS: Admitting Provider Student in an Organized Health Care Education/Training Program; PCP Family Medicine; Visit Provider Student in an Organized Health Care Education/Training Program
PROC: 0SRD0J9 Replacement of Left Knee Joint with Synthetic Substitute, Cemented, Open Approach (ICD-10-PCS; CPT 27447; principal; 2018-06-06 07:30)
DX: M17.12 Unilateral primary osteoarthritis, left knee (principal); Z96.652 Presence of left artificial knee joint; R09.02 Hypoxemia
CPT/HCPCS: 27447; 76942; 97110; 97116; 97162; 97530; NC; 93005; 93010; J0690; J1885; J2405

== ENCOUNTER 2018-06-21 09:18 | Outpatient (CLI) | payer MEDICARE, OTHER, SELFPAY ==
--- NOTE | 2018-06-21 09:14 | DI.RAD_ITS ---
SYMPTOMS/DIAGNOSIS: FIRST POST OP VISIT FOR LT TKA STANDING AP VIEWS OF THE LOWER EXTREMITIES: Standing AP views were performed from the above the iliac crests through the ankles. There is intramedullary maria esther in the right femur and a left knee prosthesis. There is a mild leg length discrepancy at the level of the femoral heads of approximately 12 mm. There are degenerative changes of the right knee and mild degenerative changes of the hips and ankles. IMPRESSION: Bilateral hardware and leg length discrepancy. LEFT KNEE: Comparison is made with [id number]. The patient has undergone a total knee prosthesis since the previous exam. The components appear well aligned. There is some anterior soft tissue swelling.
== END 2018-06-21 09:38 ==
PROVIDERS: PCP Family Medicine; Referring Provider Family Medicine; Visit Provider Student in an Organized Health Care Education/Training Program
DX: Z96.652 Presence of left artificial knee joint (principal); Z47.1 Aftercare following joint replacement surgery; M17.12 Unilateral primary osteoarthritis, left knee; M21.752 Unequal limb length (acquired), left femur; M17.11 Unilateral primary osteoarthritis, right knee
CPT/HCPCS: 73560; 77073

== ENCOUNTER → 2018-07-19 09:07 | Outpatient (BNVA) | payer MEDICARE, OTHER, SELFPAY | PROVIDERS: PCP Family Medicine; Referring Provider Family Medicine; Visit Provider Student in an Organized Health Care Education/Training Program | DX: Z47.1 Aftercare following joint replacement surgery (principal); Z96.652 Presence of left artificial knee joint ==

== ENCOUNTER → 2018-09-04 13:52 | Outpatient (BNVA) | payer MEDICARE, OTHER, SELFPAY | PROVIDERS: PCP Family Medicine; Referring Provider Family Medicine; Visit Provider Student in an Organized Health Care Education/Training Program | DX: Z47.1 Aftercare following joint replacement surgery (principal); Z96.652 Presence of left artificial knee joint; T84.82XA Fibrosis due to internal orthopedic prosthetic devices, implants and grafts, initial encounter ==

== ENCOUNTER 2018-10-26 08:30 | Day surgery (SDC) | payer MEDICARE, OTHER, SELFPAY ==
--- NOTE | 2018-10-26 07:06 | W.PREOPHP ---
Date of service: 10/26/18 Assessment and Plan (1) Arthrofibrosis of total knee replacement: Current visit: No Status: Acute Yoseph is a 78-year-old who is active and struggling with some stiffness after knee replacement. He did not aggressively pursue physical therapy the beginning I think that has put a spine able. He does have some crepitus and bogginess about the left knee. Therefore, hopeful that an arthroscopic synovectomy and manipulation may provide some improvement with his range of motion. In the office I have previously discussed this procedure with him in detail. Today I reviewed the risk of the procedure to include bleeding, infection, pain, stiffness, recurrence, need for repeat procedures. Despite these risk, he elects to proceed. Qualifiers: Encounter type: subsequent encounter Qualified Code(s): T84.82XD - Fibrosis due to internal orthopedic prosthetic devices, implants and grafts, subsequent encounter History of Present Illness Chief Complaint: Left Knee Arthrofibrosis Narrative: Yoseph is a 38-year-old who was seen in clinic for persistent stiffness after left knee replacement. He is tried aggressively with physical therapy to improve his range of motion as well as limitations. He still has a bogginess about the left knee. He has no significant pain except for the ends of motion and with prolonged activities. He denies any instability. He denies numbness or tingling. He has no current chest pain, shortness of breath, fever, chills, nausea, vomiting. His health is otherwise been in his baseline state. Review of Systems Review of Systems All systems reviewed & are unremarkable except as noted in HPI and below PFSH Medical History Cortical cataract of left eye (Resolved) Cortical cataract of right eye (Resolved) History of [place] (myocardial infarction) (Acute) Hyperlipidemia (Acute) Nuclear sclerotic cataract of left eye (Ruled-out) Nuclear sclerotic cataract of right eye (Resolved) Surgical History (Updated 10/26/18 @ 08:52 by Mercy Phan RN) Closed fracture of right hip requiring operative repair (Acute) H/O Achilles tendon repair (Acute) History of heart artery stent (Chronic) History of tonsillectomy and adenoidectomy (Acute) Status post cataract extraction and insertion of intraocular lens of left eye (Chronic 04/24/18) Status post cataract extraction and insertion of intraocular lens of right eye (Acute 04/10/18) Social History Smoking/Tobacco Use Status: Former Tobacco Use Alcohol Intake: current Alcohol Intake frequency: a few times a month Alcohol type: wine Drug use: Never Substance use type: does not use Details: alcohol week ago Do you feel safe at home: Yes Do you feel safe in your relationship?: Yes Meds Home Medications Medication Instructions Recorded Confirmed Type Prilosec OTC 40 mg PO DAILY PRN NS 01/22/15 10/26/18 History atorvastatin 80 mg PO HS tab-cap NS 01/22/15 10/26/18 History nitroglycerin [Nitrostat] 0.4 mg SUBLINGUAL ONCE tab-cap NS 01/22/15 10/23/18 History aspirin 325 mg PO DAILY #90 tab 12/19/16 10/26/18 Rx amlodipine 5 mg PO DAILY 04/07/18 10/26/18 History metoprolol succinate 75 mg PO DAILY 04/07/18 10/26/18 History acetaminophen 1,000 mg PO PRN PRN #90 tab 10/23/18 10/26/18 Rx triamterene-hydrochlorothiazid 1 cap PO DAILY 10/26/18 10/26/18 History Allergies Allergy/AdvReac Type Severity Reaction Status Date / Time No Known Allergies Allergy Unverified 10/26/18 08:42 Exam Const General: cooperative, healthy appearing, comfortable and no acute distress Nutritional Appearance: average body habitus Orientation: alert, awake and oriented x3 Resp Effort & Inspection: normal respiratory effort Auscultation: clear to auscultation bilaterally Cardio Rate: regular rate Rhythm: regular rhythm Extrem Other: Left knee incision is well-healed. No signs of infection. Bogginess of the left knee. Range of motion actively is approximately 20 to 105 degrees. Passively I may be a good few degrees more on either end of this. The knee is stable to varus and valgus stress. Some crepitus around the patella going from extension to flexion.
[2018-10-26 08:53] VITALS: BP 134/79; PULSE 62; RESP 20; TEMP 36.3; O2SAT 90
[2018-10-26] MEDS: Lactated Ringers 1,000 ML 80 ML IV (09:33)
--- NOTE | 2018-10-26 11:05 | W.PM.DSUDISC ---
Discharge Plan Disposition Patient Disposition: HOME Condition: Good Discharge Details Reason For Visit: Arthrofibrosis of left TKA Attending Provider: Rodri Brewer Primary Care Provider: Berhane Zhao Home Meds and New Rx's Prescriptions: New acetaminophen 500 mg tablet 500 mg PO Q6H PRN (Reason: pain) Qty: 60 RF: 0 ibuprofen 600 mg tablet 600 mg PO TID PRN (Reason: pain) Qty: 60 RF: 0 oxycodone 5 mg tablet 5 mg PO Q6H PRN (Reason: severe post-operative pain) Qty: 12 RF: 0 Continued atorvastatin 80 MG tablet 80 mg PO HS RF: 0 nitroglycerin [Nitrostat] 0.4 MG tablet, sublingual 0.4 mg Sublingual ONCE RF: 0 Prilosec OTC 20 MG tablet,delayed release (DR/EC) 40 mg PO DAILY PRNRF: 0 aspirin 325 MG tablet 325 mg PO DAILY Qty: 90 RF: 0 amlodipine 10 mg Tablet 5 mg PO DAILY RF: 0 metoprolol succinate 25 mg Tablet Extended Release 24 Hr 75 mg PO DAILY RF: 0 acetaminophen 500 mg tablet 1,000 mg PO PRN PRN (Reason: pain) Qty: 90 RF: 3 triamterene-hydrochlorothiazid 37.5-25 mg Capsule 1 cap PO DAILY RF: 0 Discharge Instructions Additional Instructions: Knee Manipulation Discharge Instructions Activity: You should begin moving as soon as possible. You may work on flexion but also equally maintain extension. You may bear weight as tolerated, using crutches only for support/comfort. You should apply ice to help with swelling and elevate when possible (especially in the first few days). When elevating the knee make sure you do not place a pillow beneath the knee this will help with your extension Dressings: The knee dressing may come down after 48 hours. You may shower and get the wound wet at that time. You should keep the wounds covered with a bandaid until follow-up. Medications: - Recommend to take up to 1000mg of Acetaminophen (Tylenol) and 600mg of Ibuprofen (Advil) every 8 hours as needed. These larger strength tablets were called in but you also may use [id number]-[id number]. Due to your anticoagulation medication and interaction with NSAID medications please minimize the use of Ibuprofen but you can take as needed for pain. - Rarely does this require any stronger pain medications. However, you can take Oxycodone up to every 6 hours for breakthrough pain Follow-up: 7-10 days Referrals: Rodri Brewer MD [ [facility] STAFF PHYSICIAN] - Equipment/Supplies: Brace and Partial Weight Bearing Crutches Activity:: Increase your activity as tolerated and elevate the leg frequently Remove Dressings/Wound Care:: 72 hours Shower/Bathe:: 72 hours Diet:: As Tolerated Discharge Orders Discharge Orders: Discharge Order (Routine); Ordered 10/26/18 Ordered By: Stephenie Rodas DS: Diagnosis Discharge Diagnosis (1) Arthrofibrosis of total knee replacement: Status: Acute
[2018-10-26] MEDS: ceFAZolin 2 GM/50 ML BAG IVPB (11:15)
[2018-10-26] MEDS: Bupivacaine 0.5% Pres-Free 30 ML VIAL (11:28)
[2018-10-26 11:56] VITALS: BP 123/63; PULSE 61; RESP 18; TEMP 36.6; O2SAT 95
[2018-10-26 12:01] VITALS: BP 131/64; PULSE 64; RESP 14; TEMP 36.6; O2SAT 94
[2018-10-26 12:06] VITALS: BP 143/68; PULSE 71; RESP 12; TEMP 36.6; O2SAT 95
[2018-10-26 12:21] VITALS: BP 147/59; PULSE 67; RESP 14; TEMP 36.4; O2SAT 94
[2018-10-26 13:10] VITALS: BP 131/78; PULSE 55; RESP 14; TEMP 36.1; O2SAT 93
--- NOTE | 2018-10-27 07:18 | W.PM.OP ---
Date of service: 10/26/18 Time of Service: 13:18 Operative Note DATE OF PROCEDURE: 10/26/18 PRE-OP DIAGNOSIS: Left knee arthrofibrosis POST-OP DIAGNOSIS: same PROCEDURE: Left knee arthroscopic synovectomy with manipulation under anesthesia SURGEON: Rodri Brewer ANESTHESIA: LIO ESTIMATED BLOOD LOSS: 0 PATHOLOGY: none sent COMPLICATIONS: None Patient was transported to: PACU Patient's condition: stable Indications: I have seen Yoseph in clinic for symptoms stiffness following total knee replacement. There was a delay with his therapies to start and he developed a significant flexion contracture. Nonoperative measures were exhausted but disability and pain persisted. I discussed knee arthroscopy with meniscal intervention with the patient. I reviewed the risks of the procedure to include, but not limited to, bleeding, infection, pain, stiffness, damage to nerves or vessels, recurrence, blood clot. Despite these risks, the patient elected to proceed. Findings: Preoperative extension was -20 degrees passively. Arthroscopic evaluation showed significant scarring and thickening of the synovium throughout the knee. Extensive synovectomy was performed followed by manipulation which got the knee to nearly 0 degrees of extension. Procedure Description: Yoseph was greeted in the preoperative holding area where the correct side was identified and marked. The consent was reviewed with the patient and signed. The history and physical was updated. All questions were answered. Yoseph was taken back to the operating room. The patient was placed into the supine position on the operating room table. All bony prominences were well padded. Prophylactic antibiotics in the form of cefazolin were administered. The left leg was then prepped with Chloraprep and draped in a standard fashion with stockinette and extremity drape. A timeout to confirm correct identity, side and site, procedure, allergies, anesthesia, and medical concerns was performed. The leg was placed into a pneumatic leg antonio, [id number]. A standard lateral portal was made at the lateral border of the patella tendon in line with the inferior pole of the patella, soft spot. The skin and deep tissue was incised sharply and the blunt trochar was inserted atraumatically. Immediately there was significant amount of scar tissue visualized. Once some space anterior to the femoral component was established, the knee was brought into some valgus stress in extension to open the medial compartment. A medial portal was made, localized by a spinal needle. The portal was created with an #11 blade through skin and capsule under direct visualization avoiding any meniscal injury. Using shaver and electrocautery I debrided down the anterior soft tissue to create space exposing the anterior aspect of the polyethylene down to the tibial base. I then worked medially to create the gutter medial to the polyethylene. Again, this was debrided such that the polyethylene and down to the tibial base plate were exposed. This was taken around to the posterior medial corner of the knee. The inflammatory, healing, and synovitis was debrided down to the retinaculum. Moving back towards the central portion of the knee synovium and scar tissue was resected from within the notch as well as from around the medial, distal, and lateral aspect of the patella. This gave complete visualization medially and anteriorly of the knee. A third portal was then established superolaterally. This was done with a spinal needle. With visualization still from the lateral portal I used the superolateral portal working portal and reestablish the lateral gutter. There was notable scarring laterally which took some time to redevelop the lateral gutter. This was opened up all the way from the patella down towards the popliteus tendon. Once this was debrided and resected to re-create the lateral gutter I then moved superiorly. Synovectomy was performed within this space which had some minor adhesions. These were resected off the anterior femur to re-create the supra patellar pouch. The arthroscope was then removed from the knee. Muscle relaxant was administered by anesthesia. I then performed a manipulation first in the flexion where I was able to gain nearly 120 degrees of flexion. I then slowly worked the knee into extension with a bump underneath the midportion of the tibia. As I was applying gentle pressure there was a notable audible crepitus with immediate improvement with range of motion. Discussed the need to within 1 or 2 degrees of full extension. This was held for a few minutes to make sure that this was obtained fully. The knee was then noted to have passive extension of nearly 0 degrees. The wounds were closed with 4-0 Nylon. They were dressed with Xeroform, 4x4 gauze, ABD pad, Kerlix and an KENNETH wrap. A Cryo/Cuff was applied. The patient tolerated the procedure well and was returned to the Same Day Surgery area in a stable condition suffering no known complication.
== END 2018-10-26 14:02 | disposition home or self-care (01) ==
PROVIDERS: PCP Family Medicine; Visit Provider Student in an Organized Health Care Education/Training Program
PROC: (CPT 29870; principal; 2018-10-26 10:45)
DX: T84.82XA Fibrosis due to internal orthopedic prosthetic devices, implants and grafts, initial encounter (principal); M24.562 Contracture, left knee; Z96.652 Presence of left artificial knee joint; M65.88 Other synovitis and tenosynovitis, other site
CPT/HCPCS: 29876; 27570; NC; 93005; 93010; J0690; J1100; J1885; J2405

== ENCOUNTER → 2018-11-06 10:21 | Outpatient (BNVA) | payer MEDICARE, OTHER, SELFPAY | PROVIDERS: PCP Family Medicine; Referring Provider Family Medicine; Visit Provider Student in an Organized Health Care Education/Training Program | DX: Z47.1 Aftercare following joint replacement surgery (principal); Z96.652 Presence of left artificial knee joint; T84.82XA Fibrosis due to internal orthopedic prosthetic devices, implants and grafts, initial encounter ==

== ENCOUNTER 2018-12-01 11:03 | Outpatient (CLI) | payer MEDICARE, OTHER, SELFPAY | END 2018-12-01 11:23 | PROVIDERS: PCP Family Medicine; Visit Provider Family Medicine | DX: I49.3 Ventricular premature depolarization (principal); I49.1 Atrial premature depolarization | CPT/HCPCS: 93225 ==

== ENCOUNTER 2018-12-02 10:50 | Outpatient (CLI) | payer MEDICARE, OTHER, SELFPAY ==
--- NOTE | 2018-12-05 12:45 | HOLTER_ITS ---
DATE OF DICTATION: December 05, 2018 STUDY INDICATION: Atrial fibrillation. REQUESTING PROVIDER: Not available. FINDINGS: The patient was monitored for 23 hours. Average heart rate 73 bpm, range 58 to 110 bpm. Occasional ventricular ectopy. 1216 PVC's per day. No VT. Occasional supraventricular ectopy. 2151 PAC's per day. Nine atrial runs, longest 7 beats, fastest 174 bpm. No pauses greater than 3 seconds. No high-degree heart block. Seven patient events. None of these events correlated with arrhythmias. FINAL INTERPRETATION: Occasional supraventricular and ventricular ectopy, asymptomatic.
== END 2018-12-02 11:10 ==
PROVIDERS: PCP Family Medicine; Visit Provider Family Medicine
DX: I49.3 Ventricular premature depolarization (principal); I49.1 Atrial premature depolarization
CPT/HCPCS: 93226

== ENCOUNTER → 2018-12-04 09:39 | Outpatient (BNVA) | payer MEDICARE, OTHER, SELFPAY | PROVIDERS: PCP Family Medicine; Referring Provider Family Medicine; Visit Provider Student in an Organized Health Care Education/Training Program | DX: Z47.89 Encounter for other orthopedic aftercare (principal); M17.11 Unilateral primary osteoarthritis, right knee ==

== ENCOUNTER 2018-12-05 11:20 | Outpatient (CLI) | payer MEDICARE, OTHER, SELFPAY | END 2018-12-05 11:40 | PROVIDERS: PCP Family Medicine; Referring Provider Family Medicine; Visit Provider Student in an Organized Health Care Education/Training Program | DX: I49.3 Ventricular premature depolarization; I49.1 Atrial premature depolarization | CPT/HCPCS: 93227 ==

== ENCOUNTER 2019-01-17 14:32 | Outpatient (CLI) | payer MEDICARE, OTHER, SELFPAY ==
--- NOTE | 2019-01-17 11:02 | PFT_ITS ---
JANUARY 17, 2019 REQUESTING PROVIDER: Berhane Zhao SPIROMETRY: Shows mild obstructive airways disease with no significant bronchodilator response. LUNG VOLUME: Shows mild restriction. DIFFUSION CAPACITY: Moderately reduced. AIRWAYS RESISTANCE: Elevated. IMPRESSION: A combination of mild obstructive airways disease and mild restrictive lung disease. Therefore, clinical correlation is recommended. For the restrictive pattern a work-up for possible underlying restrictive lung disease such as pulmonary fibrosis should be considered if clinically indicated.
[2019-01-17] MEDS: Inhaler, Assist Device 1 EACH MC (15:52)
[2019-01-17] MEDS: Albuterol HFA 18 GM 200 PUFF INH IH (15:52)
== END 2019-01-17 14:52 ==
PROVIDERS: PCP Family Medicine; Visit Provider Family Medicine
DX: J44.9 Chronic obstructive pulmonary disease, unspecified (principal); R06.00 Dyspnea, unspecified; Z87.891 Personal history of nicotine dependence
CPT/HCPCS: 94060; 94150; 94726; 94729

== ENCOUNTER → 2019-02-05 08:53 | Outpatient (BNVA) | payer MEDICARE, OTHER, SELFPAY | PROVIDERS: PCP Family Medicine; Referring Provider Family Medicine; Visit Provider Student in an Organized Health Care Education/Training Program | DX: T84.82XD Fibrosis due to internal orthopedic prosthetic devices, implants and grafts, subsequent encounter (principal); Z47.89 Encounter for other orthopedic aftercare; Z96.652 Presence of left artificial knee joint | CPT/HCPCS: 99213 ==

== ENCOUNTER 2019-03-08 00:35 | Outpatient (CLI) | payer MEDICARE, OTHER, SELFPAY ==
--- NOTE | 2019-03-08 13:32 | DI.CT_ITS ---
EXAM: CT CHEST WO CLINICAL HISTORY: DYSPNEA ON EXERTION R06.09 TECHNIQUE: Noncontrast COMPARISON: No exams were available for comparison FINDINGS: The heart size is normal. No pleural or pericardial effusions are seen. Coronary artery calcificati ons are noted. There are few tree-in-bud like opacities in the anterior right upper lobe. No suspic ious mass or focal area of consolidation is seen. There are no underlying emphysematous or interstit ial changes. IMPRESSION: Few tree-in-bud type opacities in the right upper lobe are nonspecific and could be secondary to infe ctious or allergic bronchiolitis.
== END 2019-03-08 00:55 ==
PROVIDERS: PCP Family Medicine; Visit Provider Internal Medicine
DX: R06.09 Other forms of dyspnea (principal); R91.8 Other nonspecific abnormal finding of lung field
CPT/HCPCS: 71250

== ENCOUNTER 2019-06-08 08:33 | Outpatient (CLI) | payer MEDICARE, OTHER, SELFPAY ==
--- NOTE | 2019-06-08 08:00 | DI.RAD_ITS ---
EXAM: XR KNEE LT 2V AP,LAT CLINICAL HISTORY: ANNUAL F/U. TECHNIQUE: 2D digital imaging was performed. COMPARISON: XR standing alignment from 06/21/2018 XR knee LT 1V from 06/21/2018 FINDINGS: BONES: No acute fracture is present. No bony destructive lesion is seen. JOINTS: There are stable postsurgical changes of a left total knee replacement. No evidence of hardw are failure is seen. No joint effusion is seen. SOFT TISSUE: Vascular calcifications are seen in the soft tissues. IMPRESSION: Stable left TKR. DATA REPOSITORY: RADIATION DOSE DELIVERED:
== END 2019-06-08 08:53 ==
PROVIDERS: PCP Family Medicine; Visit Provider Student in an Organized Health Care Education/Training Program
DX: Z96.652 Presence of left artificial knee joint (principal); Z47.1 Aftercare following joint replacement surgery
CPT/HCPCS: 99213; 73560

== ENCOUNTER → 2019-10-18 11:37 | Outpatient (BNVA) | payer MEDICARE, OTHER, SELFPAY | PROVIDERS: PCP Family Medicine; Referring Provider Family Medicine; Visit Provider Student in an Organized Health Care Education/Training Program | DX: T84.82XD Fibrosis due to internal orthopedic prosthetic devices, implants and grafts, subsequent encounter (principal); Z96.652 Presence of left artificial knee joint | CPT/HCPCS: 99213 ==

== ENCOUNTER 2019-10-27 07:13 | Outpatient (CLI) | payer MEDICARE, OTHER, SELFPAY ==
[2019-10-28 17:25] LABS: COVID-19 RT-PCR Result NEGATIVE (Negative)
== END 2019-10-27 07:33 ==
PROVIDERS: PCP Family Medicine; Visit Provider Student in an Organized Health Care Education/Training Program
DX: T84.82XD Fibrosis due to internal orthopedic prosthetic devices, implants and grafts, subsequent encounter (principal)
CPT/HCPCS: U0003

== ENCOUNTER 2019-10-31 08:25 | Day surgery (SDC) | payer MEDICARE, OTHER, SELFPAY ==
--- NOTE | 2019-10-31 07:35 | W.PM.DSUDISC ---
Discharge Plan Disposition Patient Disposition: HOME Condition: Good Discharge Details Reason For Visit: arthrofibrosis of left TKA Attending Provider: Rodri Brewer Primary Care Provider: Berhane Zhao Home Meds and New Rx's Prescriptions: Continued atorvastatin 80 MG tablet 80 mg PO HS RF: 0 nitroglycerin [Nitrostat] 0.4 MG tablet, sublingual 0.4 mg Sublingual ONCE RF: 0 omeprazole magnesium [Prilosec OTC] 20 MG tablet,delayed release (DR/EC) 40 mg PO DAILY PRNRF: 0 aspirin 325 MG tablet 325 mg PO DAILY Qty: 90 RF: 0 amlodipine 10 mg Tablet 5 mg PO DAILY RF: 0 metoprolol succinate 25 mg Tablet Extended Release 24 Hr 75 mg PO DAILY RF: 0 triamterene-hydrochlorothiazid 37.5-25 mg Capsule 1 cap PO DAILY RF: 0 Discontinued acetaminophen 500 mg tablet 1,000 mg PO PRN PRN (Reason: pain) Qty: 90 RF: 3 acetaminophen 500 mg tablet 500 mg PO Q6H PRN (Reason: pain) Qty: 60 RF: 0 ibuprofen 600 mg tablet 600 mg PO TID PRN (Reason: pain) Qty: 60 RF: 0 oxycodone 5 mg tablet 5 mg PO Q6H PRN (Reason: severe post-operative pain) Qty: 12 RF: 0 Discharge Orders Discharge Orders: Discharge Order (Routine); Ordered 10/31/19 Ordered By: Stephenie Rodas DS: Diagnosis Discharge Diagnosis (1) Arthrofibrosis of total knee replacement: Status: Acute
== END 2019-10-31 08:45 | disposition home or self-care (01) ==
PROVIDERS: PCP Family Medicine; Visit Provider Student in an Organized Health Care Education/Training Program
DX: R69 Illness, unspecified (principal)
CPT/HCPCS: J1100; J2001; J2405; J2704

== ENCOUNTER 2019-11-02 10:21 | Day surgery (SDC) | payer MEDICARE, OTHER, SELFPAY ==
[2019-11-02] VITALS (7 sets, daily range): BP systolic 146–170; BP diastolic 68–83; PULSE 57–66; RESP 12–22; TEMP 36.1–37.1; O2SAT 90–97
[2019-11-02] MEDS: Lactated Ringers 1,000 ML 80 ML IV (11:09)
[2019-11-02] MEDS: ceFAZolin 2 GM/50 ML BAG IVPB (12:37)
[2019-11-02] MEDS: Bupivacaine 0.5% Pres-Free 30 ML VIAL (13:31)
--- NOTE | 2019-11-02 13:42 | W.PM.DSUDISC ---
Discharge Plan Disposition Patient Disposition: HOME Condition: Good Discharge Details Reason For Visit: KNEE SCOPE Attending Provider: Rodri Brewer Primary Care Provider: Berhane Zhao Home Meds and New Rx's Prescriptions: Continued atorvastatin 80 MG tablet 80 mg PO HS RF: 0 nitroglycerin [Nitrostat] 0.4 MG tablet, sublingual 0.4 mg Sublingual ONCE RF: 0 omeprazole magnesium [Prilosec OTC] 20 MG tablet,delayed release (DR/EC) 40 mg PO DAILY PRNRF: 0 aspirin 325 MG tablet 325 mg PO DAILY Qty: 90 RF: 0 amlodipine 10 mg Tablet 5 mg PO DAILY RF: 0 metoprolol succinate 25 mg Tablet Extended Release 24 Hr 75 mg PO DAILY RF: 0 triamterene-hydrochlorothiazid 37.5-25 mg Capsule 1 cap PO DAILY RF: 0 acetaminophen 500 mg tablet 500 mg PO Q6H PRN (Reason: pain) Qty: 60 RF: 2 ibuprofen 600 mg tablet 600 mg PO TID PRN (Reason: pain) Qty: 60 RF: 0 oxycodone 5 mg tablet 5 mg PO Q6H PRN (Reason: severe post-operative pain) Qty: 12 RF: 0 Eliquis 5 mg Tablet 5 mg PO BID RF: 0 Discharge Instructions Additional Instructions: Activity: You should begin moving as soon as possible. You may work on flexion but also equally maintain extension. You may bear weight as tolerated, using crutches only for support/comfort. You should apply ice to help with swelling and elevate when possible (especially in the first few days). Dressings: The knee dressing may come down after 72 hours. You may shower and get the wound wet at that time. You should keep the wounds covered with a bandaid until follow-up. No swimming or submersion for 2 weeks. Medications: - Rarely does this require any stronger pain medications. - Recommend to take up to 1000mg of Acetaminophen (Tylenol) and 600mg of Ibuprofen (Advil) every 8 hours as needed. These larger strength tablets were called in but you also may use [id number]. - A stronger pain med, Oxycodone, was called in, in case you need it. Follow-up: 7-10 days Equipment/Supplies: Partial Weight Bearing Crutches Activity:: Elevate Remove Dressings/Wound Care:: 72 hours Shower/Bathe:: 72 hours Diet:: As Tolerated Discharge Orders Discharge Orders: Discharge Order (Routine); Ordered 11/02/19 Ordered By: Rodri Brewer DS: Diagnosis Discharge Diagnosis (1) Arthrofibrosis of total knee replacement: Status: Acute
[2019-11-02] MEDS: fentaNYL 100 MCG/2 ML VIAL IVP (13:48)
[2019-11-02] MEDS: HYDROcodone 5/Acetaminophen 325 TAB PO (14:32)
--- NOTE | 2019-11-02 19:08 | W.PM.OP ---
Date of service: 11/02/19 Time of Service: 13:45 Operative Note Operative Note DATE OF PROCEDURE: 11/03/19 PRE-OP DIAGNOSIS: Left Knee Arthrofibrosis s/p Replacement POST-OP DIAGNOSIS: same PROCEDURE: Left Knee Arthroscopic Synovectomy with Manipulation Under Anesthesia SURGEON: Rodri Brewer ANESTHESIA: LIO ESTIMATED BLOOD LOSS: 0 PATHOLOGY: none sent TOURNIQUET TIME: 0 COMPLICATIONS: None Patient was transported to: PACU Patient's condition: stable Indications: Yoseph is a 79 year old male who is s/p knee replacement. Despite diligent work with physical therapy there has been continued stiffness. He had a previous arthroscopic synovectomy performed about this time last year with excellent results. Unfortunate, over the last few months he has had a return of his stiffness. I discussed the risks of the procedure to include bleeding, pain, recurrent stiffness, fracture. Despite these risks, he elects to proceed. Findings: Preoperative flexion = 105 Postoperative flexion = 130 Preoperative extension = 15 Postoperative extension = 10 Procedure Description: The patient is agreed in the preoperative holding area. Identity was confirmed and the correct side was identified and marked. The consent was reviewed the patient and signed. History and physical was updated. Yoseph was taken back to the operating room. The left side was identified as the correct side. A timeout was performed for safe surgery. A general anesthetic was administered. The knee was then prepped with ChloraPrep and draped in a standard fashion. The leg was placed into a spider pneumatic leg antonio. The knee was injected with 60 cc of normal saline without difficulty. A standard lateral portal was then made and the camera is inserted into the knee. Immediately, we had visualization of the knee components. There is notable scarring seen around the patella and in the anterior aspect of the knee. This was hypertrophic white tissue, not synovitis. A superolateral portal was then established. Using electrocautery as well as a shaver, I resected the scar tissue from around the patella. The suprapatellar pouch was also noted to be scarred in and therefore I took the vapor electrocautery wand and reconstructed the suprapatellar pouch by releasing fibrous adhesions from the femur and the extensor mechanism. Once this was completed I then resected tissue within the medial and lateral gutters. This was done such as able to visualize the interface between the polyethylene and the tibia and femur. A second medial portal was made to complete this. The anterior space was also resected and there is notable scarring within the notch which was resected as well. After this was completed, a manipulation was performed. Pre-manipulation range of motion was noted. A gentle manipulation was performed first into flexion using a very small lever arm and adding gentle and progressive pressure to the tibia. There is audible and palpable crepitus with improvement in range of motion. This was cycled and repeated multiple times. The leg was then brought into extension and gentle anterior posterior pressure was applied with a supported hand behind the proximal tibia and knee. This was brought back into flexion was once again manipulated with gentle and progressive pressure. Final range of motion numbers were recorded. The wounds were closed with #4-0 nylon. The knee and soft tissues were injected with 0.5% bupivacaine. The wounds were dressed with Xeroform, 4 x 4's, ABD, Kerlix, and Dexter wrap. He was awake from anesthesia and taken to the PACU in stable condition.
== END 2019-11-02 15:40 | disposition home or self-care (01) ==
PROVIDERS: PCP Family Medicine; Visit Provider Student in an Organized Health Care Education/Training Program
PROC: (CPT 29870; principal; 2019-11-02 12:00)
DX: T84.82XA Fibrosis due to internal orthopedic prosthetic devices, implants and grafts, initial encounter (principal); Z96.652 Presence of left artificial knee joint; M23.8X2 Other internal derangements of left knee
CPT/HCPCS: 29876; 27570; J0690; J3010